=== PATIENT | female | born 1980 | race Caucasian/White ===

== ENCOUNTER → 2016-10-31 | Outpatient (CLI) | payer BC, OTHER ==
[~2016-10-31] MED LIST: ACET-1256 PO; ALBU1AER9 INH; CETI10TA84 PO; CHOL100010 PO; CMP/10 PO; KETO10TA PO; LEVO100T7 PO; LRS20 PO; NRT75 PO; OLOP0.1S2 OPB
--- NOTE | 2016-11-01 07:55 | MAMMOGRAPHY REPORT ---
BILATERAL DIGITAL SCREENING MAMMOGRAM TOMOSYNTHESIS WITH CAD: 10/31/2016 CLINICAL HISTORY: Routine screening. Patient has no complaints. TECHNIQUE: Breast tomosynthesis in addition to standard 2D mammography was performed. Current study was also evaluated with a Computer Aided Detection (CAD) system. COMPARISON: No prior exams were available for comparison. BREAST COMPOSITION: The tissue of both breasts is extremely dense, which lowers the sensitivity of m ammography. FINDINGS: No suspicious mass, architectural distortion or cluster of microcalcifications is seen. IMPRESSION: ACR BI-RADS CATEGORY 1: NEGATIVE There is no mammographic evidence of malignancy. A 1 year screening mammogram is recommended. Given the reported strong family history of breast cancer, and extremely dense breasts, consider additional screening with breast MRI. The patient will receive written notification of the results. Approximately 10% of breast cancers are not detected with mammography. A negative mammographic report should not delay biopsy if a clinically suggestive mass is present. Shayla Lind M.D. ay/:10/31/2016 18:31:50 Packing Machine Tender: Catrachita MIGUEL)(Chary), [facility] letter sent: Normal 1/2 BI-RADS Code: ACR BI-RADS Category 1: Negative
== END | disposition home or self-care (01) ==
LOC: C.MAMM 12:21
PROVIDERS: ATTEND Obstetrics & Gynecology
DX: Z12.31 Encounter for screening mammogram for malignant neoplasm of breast (principal)

== ENCOUNTER → 2016-11-27 | Outpatient (CLI) | payer BC ==
--- NOTE | 2016-11-27 17:30 | DIAGNOSTIC IMAGING REPORT ---
ULTRASOUND L VENOUS DOPP LOWER EXT UNILAT CLINICAL HISTORY: LEFT LEG PAIN AND SWELLING COMPARISON STUDY: No previous studies for comparison. FINDINGS: Real-time and color flow Doppler imaging were performed. Flow was seen within the femoral, popliteal and calf veins with no intraluminal thrombus demonstrated. The saphenous vein is patent. IMPRESSION: No evidence of left lower extremity DVT. Electronically signed by: Niranjan Vogt M.D. 11/27/2016 5:29 PM Dictated Date/Time: 11/27/2016 5:29 PM
== END | disposition home or self-care (01) ==
LOC: C.ULTR 16:54
PROVIDERS: ATTEND Family Medicine
DX: M79.652 Pain in left thigh (principal)

== ENCOUNTER → 2016-12-05 | Outpatient (CLI) | payer BC ==
[2016-12-05 11:02] LABS: BASO % 0.8 %; BASO ABS # 0.05 K/uL (0-0.2); COMPLETE YES; EOS % 4.8 %; HEMATOCRIT 39.5 % (37-47); IG% 0.2 %; LYMPH % 34.8 %; LYMPH ABS # 2.24 K/uL (1.2-3.4); MEAN CELL VOLUME 89.4 fL (80-100); MEAN CORPUSCULAR HEMOGLOBIN 31.2 pg (25-34); MEAN CORPUSCULAR HGB CONC 34.9 g/dl (32-36); MEAN PLATELET VOLUME 9.6 fL (7.4-10.4); MONO % 7.2 %; NEUT % 52.2 %; PLATELET COUNT 277 K/uL (130-400); RED BLOOD COUNT 4.42 M/uL (4.2-5.4); WHITE BLOOD COUNT 6.43 K/uL (4.8-10.8)
[2016-12-05 14:02] LABS: ALT/SGPT 23 U/L (12-78); AST/SGOT 11 U/L (15-37); BLOOD UREA NITROGEN 15 mg/dl (7-18); BUN/CREATININE RATIO 20.8 (10-20); CARBON DIOXIDE 26 mmol/L (21-32); CHLORIDE 107 mmol/L (98-107); CREATININE 0.74 mg/dl (0.60-1.20); GLUCOSE 82 mg/dl (70-99); MAGNESIUM 2.2 mg/dl (1.8-2.4); POTASSIUM 4.3 mmol/L (3.5-5.1); SODIUM 140 mmol/L (136-145)
[2016-12-05 14:05] LABS: ALB/GLOB RATIO 1.2 (0.9-2); ALKALINE PHOSPHATASE 38 U/L (45-117)
== END | disposition home or self-care (01) ==
LOC: C.LABBC 09:13
PROVIDERS: ATTEND Psychiatry & Neurology Neurology
DX: G43.909 Migraine, unspecified, not intractable, without status migrainosus (principal)

== ENCOUNTER → 2017-06-28 | Outpatient (CLI) | payer BC | END | disposition home or self-care (01) | LOC: C.LAB 07:58 | PROVIDERS: ATTEND Nutritionist | DX: R53.83 Other fatigue (principal) ==

== ENCOUNTER 2023-09-23 04:41 | Observation (INO) ==
--- OUTSIDE RECORDS SUMMARY | 2023-09-23 04:46 | External Medical Summary | Continuity of Care Document ---
Author Name Unknown Organization [address] Address [address] [place] [phone] Care Team Providers Care Help Desk Supervisor Name Role Phone Gallo Richard Primary Care Physician [phone] [id number] Date(s): 08/27/23 - 08/27/[address] [address] [phone] Encounter Diagnosis Body mass index [BMI] 26.0-26.9, adult(Discharge Diagnosis) - 08/27/23 Burris esophagus(Discharge Diagnosis) - 08/27/23 Constipation(Discharge Diagnosis) - 08/27/23 GERD with esophagitis(Discharge Diagnosis) - 08/27/23 Discharge Disposition: Home or Self Care Attending Physician: MD Fontanez Brian D Referring Physician: DO Richard Franklin J Allergies, Adverse Reactions, Alerts No Known Allergies Assessment and Plan Extracted from: Title:GI OV Author:MD Fontanez Brian D Date: 08/27/23 Impression and Plan constipaiton---continue Linzess but add in Miralax up to every day on regular basis to help with constipaion. GERD stable on PPI, Discusse potential superintendent terminal risk of dementia, osteoporosis, renal issues. Howevver, H2 blockers not effective. Check Mg and B12 which I told paitent. Barretts---in 2019 but neg last 2 scopes. Pt would like to keep following EGD for peace of mind and mother has Barretts--nest due 06/2026 hx of colon polyp--next due 06/2028 Check Mg and B12 Pt told to call if not heard results of testing within 2 weeks. OV 6 months. Immunizations Given and Recorded Vaccine Date Status Refusal Reason SARS-CoV-2 (COVID-19) mRNA BNT-162b2 vax 1 02/02/22 Recorded influenza virus vaccine, inactivated 12/30/20 Russell rded influenza virus vaccine, inactivated 11/19/19 Give n influenza virus vaccine, inactivated 03/31/19 Give n influenza virus vaccine, inactivated 12/27/17 Give n influenza virus vaccine, inactivated 01/18/17 Give n influenza virus vaccine, inactivated 01/11/16 Give n influenza virus vaccine, inactivated 12/23/14 Give n influenza virus vaccine, inactivated 11/15/12 Give n influenza virus vaccine, inactivated 11/30/11 Give n SARS-CoV-2 (COVID-19) ChAdOx1 vaccine 2 05/16/20 R ecorded tetanus/diphtheria/pertuss, acel (Tdap) 11/18/13 R ecorded tetanus/diphtheria/pertuss, acel (Tdap) 12/22/08 R ecorded diphtheria/pertussis, whole cell/tetanus 3 11/18/13 Recorded human papillomavirus vaccine 08/22/06 Recorded human papillomavirus vaccine 05/03/06 Recorded human papillomavirus vaccine 03/07/06 Recorded 1Result Comment: 2022-03-30: Historical information-source unspecified 2Result Comment: [employer] 3Result Comment: 2019-12-04: Historical information-source unspecified Medications Albuterol (Eqv-ProAir HFA) 90 mcg/inh inhalation aerosol Start: 12/27/22 5:05:00 PM EDT, 2 puff, inhaled, qid, Disp# 8.5 each, Refills: 3, PRN: NEEDED FOR WHEEZING, Pharmacy: [id number] [id number] Start Date: 12/27/22 Status: Ordered baclofen Start: 11/01/20 9:27:00 AM EDT, 10 mg =, PO, tid Start Date: 11/01/20 Status: Ordered Botox injections Start: 12/14/21 2:19:00 PM EDT, Botox injections, 150 = mg, q90 days Start Date: 12/14/21 Status: Ordered DULoxetine 30 mg oral delayed release capsule Start: 10/23/22 8:19:00 AM EDT, 1 cap, PO, Daily Start Date: 10/23/22 Status: Ordered DULoxetine 60 mg oral delayed release capsule Start: 10/23/22 8:18:00 AM EDT, 1 cap, PO, Daily Start Date: 10/23/22 Status: Ordered fluticasone 50 mcg/inh nasal spray Start: 09/16/14 8:30:31 AM EDT, See Instructions, Disp# 1 each, Refills: 2, INSTILL one SPRAYS IN EACH NOSTRIL twice DAILY in each nostril, Pharmacy: [id number] Start Date: 09/16/14 Status: Ordered levothyroxine 100 mcg (0.1 mg) oral tablet Start: 01/05/23 1:28:00 PM EDT, See Instructions, Disp# 90 tab, Refills: 2, TAKE 1 TABLET BY MOUTH EVERY DAY TAKE 1/2 TABLET ON MONDAYS, Pharmacy: [facility] [id number] Start Date: 01/05/23 Status: Ordered Metamucil Start: 08/27/23 8:46:00 AM EDT, one teaspoon po once to twice per day Start Date: 08/27/23 Status: Ordered MiraLax oral powder for reconstitution Start: 08/27/23 8:47:00 AM EDT, 17 g =, PO, Daily, PRN: constipation Start Date: 08/27/23 Status: Ordered naproxen sodium 220 mg oral capsule Start: 03/30/22 12:49:00 PM EST, 2 cap, PO, q8h, Disp# 60 cap, Pharmacy: [id number] Start Date: 03/30/22 Stop Date: 04/09/22 Status: Ordered nortriptyline 10 mg oral capsule Start: 12/14/21 2:18:00 PM EDT, 3 caps qhs Start Date: 12/14/21 Status: Ordered Nurtec ODT 75 mg oral tablet, disintegrating Start: 12/14/21 2:18:00 PM EDT Start Date: 12/14/21 Status: Ordered omeprazole 40 mg oral delayed release capsule Start: 08/27/23 8:46:00 AM EDT, 1 cap, PO, Daily Start Date: 08/27/23 Status: Ordered propranolol Start: 10/23/22 7:56:00 AM EDT Start Date: 10/23/22 Status: Ordered Suprep Bowel Prep Kit oral liquid Start: 06/05/23 1:25:00 PM EDT, See Instructions, Disp# 354 mL, Refills: 0, Take as directed., Pharmacy: [id number] Start Date: 06/05/23 Status: Ordered Mental Status 08/27/23 Barriers to Learning one year None evide nt Mandatory Health Literacy Documentation Yes Health Literacy Communication Barriers N ever Primary Language [place] Problem List Condition Confirmation Course Effective Dates Status Health St atus Informant Burris esophagus Confirmed Active Carotidynia Confirmed Active Constipation Confirmed Active Fibromyalgia Confirmed Active GERD with esophagitis Confirmed Active IBS (irritable bowel syndrome) Confirmed Active 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 wheezing Confirmed Active Sinusitis Confirmed Active Trigeminal neuralgia Confirmed Active Diagnosis Diagnosis Type Effective Dates Health Status Clinical Service Informant Body mass index [BMI] 26.0-26.9, adult Discharge Diagnosis 08/27/23 Non-Specified Burris esophagus Discharge Diagnosis 08/27/23 Constipation Discharge Diagnosis 08/27/23 GERD with esophagitis Discharge Diagnosis 08/27/23 Procedures Procedure Date Related Diagnosis Body Site Status Colonoscopy 1, 2 06/20/23 Complete d EGD - esophagogastroduodenoscopy 3, 4 06/20/23 Completed Mammography - screening 5 02/03/21 Completed Polysomnography 6 11/16/20 Complet ed EGD - esophagogastroduodenoscopy 7, 8 06/08/20 Completed Mammogram 9 01/28/19 Completed Colonoscopy 10, 11 05/03/18 Comple mercy Esophagogastroduodenoscopy 12, 13 05/03/18 Completed Date of last PAP smear 14 02/20/18 Completed Venous doppler ultrasonograp hy left leg 15 11/27/16 Completed Mammogram 16 10/31/16 Completed MRI of cervical spine 17 12/30/14 Completed oral surgery Completed 1- Repeat colonoscopy in 5 years for surveillance. 2- Redundant colon. ranged from good to fair throughout the extent of exam. Extensive suctioning and washing was successful. - The examination was otherwise normal on direct and retroflexion views. - No specimens collected. 3- Z-line irregular, 38 cm from the incisors. Biopsied. - 2 cm hiatal hernia. - Erythematous mucosa in the antrum. Biopsied. - Normal examined duodenum. 4A) Gastric antrum, biopsy: Mild congestion and foveolar hyperplasia with minimal chronic inflammation. COMMENT: No Helicobacter pylori organisms are identified on an immunohistochemical stain for H. pylori. B) Gastroesophageal junction, biopsy: Squamous and gastric columnar mucosa with minimal chronic inflammation. COMMENT: No intestinal metaplasia or dysplasia identified. 5There is no mammographic evidence of malignancy. A 1 year screening mammogram is recommended. 6Diagnosis of karon not supported by this test which revealed a normal AHI. 7Esophageal mucosal changes consistent with short-segment Burris's esophagus, biopsied No esophagitis or stricture seen. Normal stomach. Normal duodenum to the fourth portion, biopsied. Pathology results: A) Random duodenum, biopsy: Duodenal mucosa, no significant pathological findings. B) Distal esophagus, biopsy: Squamocolumnar junctional mucosa with prominent chronic inflammation. No evidence of intestinal metaplasia or dysplasia. 8This was done by Lala Miranda and indication for procedure is dyspahgia, Barretts, bloating, 9there is no m ammographic evidence of malignancy 10COLO to cecum, fair prep but washes effective, redundant colon, polyp at 55 cm cold snared and clipped, 11path adenoma--repeat colo 5 years. 12EGD grade A erosive esopahgitis bx, mid esoph bx, 2nd duod nl bx, antral erythema bx 13path SB, antrum neg, GE focal intestinal metaplasis, mid esophagus normal. EGD 3 years 14Negative for intraepithelial lesion or malignancy. 15No evidence of left lower extermity DVT 16there is no mammgraphick evidence of malignancy 1 yr screening recommended 17[facility] Impression: 1.Signal characteristics of the vertebral bodies as well as intervertebral that appear to be unremarkable. Vital Signs Most recent to oldest [Reference Range]: 1 Height 164 cm (08/27/23 8:49 AM) Patient Weight 70.2 kg (08/27/23 8:49 AM) Body Mass Index 26.1 kg/m2 (08/27/23 8:49 AM) Blood Pressure 122/62mmHg (08/27/23 8:49 AM) Cuff Pulse Pressure 60 mmHg (08/27/23 8:49 AM) BP Location # 1 Left Arm (08/27/23 8:49 AM) Social History Social History Type Response Smoking Status Never smoked cigaret wade Sex Female Gastroenterology Outpatient Note * MD Huseyin, Robi D: PERFORM, SIGN, VERIFY Event Display: Gastroenterology Outpt Note Authored Date: [id number] Patient: PERRI DENIS Age: 43 years Sex: Female : 1980 Associated Diagnoses: None Author: MD Huseyin, Robi Suresh Chief Complaint 08/27/2023 08:47 EDT New pt here with c/o IBS-C. Is taking Linzess 290 daily. Will use metamucil po 1-2 per day. C/O upper abd pain with constipation. Just had EGD and colo History of Present Illness 08/27/2023 New patient to office but has had procedures by our group. DATA reviewed: EGD by our group 05/201819 grade A esopahgitis, path intestinal metaplasia, antrum nl path neg, mid esophnl path neg, duod nl path neg EGD [facility] 06/2020 indication barrretts, bloating, dysphagia, result short segment Barretts path neg for intestinal metaplasis, random duod bx neg COLONOSCOPY by our group polyp at 55 cm removed path tubular adenoma. labs by PCP FT4, TSH normal. EGD 06/20/2023 by me redundant, repeat exam in 5 years COLONOSCOPY 06/20/2023 irregular Z line bx path neg for intestinal metaplasia, 2 cm HH, erythema of antrum path inflammation neg for H.pylori. ETOH rare, tobacco neg. Pt states if misses a dose of Omeprzole will have GERD otherwise if taking regullary the gerd is controlled. Famotidine does not work. LInzess helps constipation but will need prunes, pickles, marinated artichokes, and/or metamucil will help. MIralax was causing gas and bloating in the past. If goes 2-3 days she will use miralax ---needs todo that every other week or so and no blaoting and gas noted. Pt feels better having bowel movements once a day. She notices bloating with lactose, gluten and possibly raw vegetables. Pt states she has had pelvic ultrasounds in the past while having the bloating symptoms and neg forpelvic pathology. She is on thyroid medication. Review of Systems Constitutional: Negative. Eye: Negative. Ear/Nose/Mouth/Throat: Negative. Respiratory: Negative. Cardiovascular: Negative. Gastrointestinal: Negative except as documented in history of present illness. Genitourinary: Negative. Hematology/Lymphatics: Negative. Endocrine: Negative. Immunologic: Negative. Musculoskeletal: Joint pain, Muscle pain, fibromyalgia. Integumentary: Negative. Neurologic: migraine headaches. Psychiatric: Negative. Health Status Allergies: Allergic Reactions (Selected) NKA. Current medications: (Selected) Prescriptions Prescribed Albuterol (Eqv-ProAir HFA) 90 mcg/inh inhalation aerosol: 2 puff, inhaled, qid, PRN: NEEDED FOR WHEEZING, 8.5 each, 3 Refill(s) Suprep Bowel Prep Kit oral liquid: See Instructions, Take as directed., 354 mL, 0 Refill(s) famotidine 40 mg oral tablet: 1 tab, PO, bid, for 30 day, 60 tab, 1 Refill(s) fluticasone 50 mcg/inh nasal spray: See Instructions, INSTILL one SPRAYS IN EACH NOSTRIL twice DAILY in each nostril, 1 each, 2 Refill(s) levothyroxine 100 mcg (0.1 mg) oral tablet: See Instructions, TAKE 1 TABLET BY MOUTH EVERY DAY TAKE1/2 TABLET ON MONDAYS, 90 tab, 2 Refill(s) naproxen sodium 220 mg oral capsule: 2 cap, PO, q8h, for 10 day, 60 cap Documented Medications Documented Botox injections: 150 mg, q90 days DULoxetine 30 mg oral delayed release capsule: 1 cap, PO, Daily DULoxetine 60 mg oral delayed release capsule: 1 cap, PO, Daily Metamucil: one teaspoon po once to twice per day MiraLax oral powder for reconstitution: 17 g, PO, Daily, PRN: constipation Nurtec ODT 75 mg oral tablet, disintegrating: baclofen: 10 mg, PO, tid nortriptyline 10 mg oral capsule: 3 caps qhs omeprazole 40 mg oral delayed release capsule: 1 cap, PO, Daily propranolol: . Problem list: Medical ACQUIRED HYPOTHYROIDISM / ICD-9-CM 244 / Rule out Burris esophagus / SNOMED CT 647730379 / Confirmed Carotidynia / SNOMED CT 377419798 / Confirmed Facial neuralgia / SNOMED CT 833353654 / Confirmed Fibromyalgia / SNOMED CT 019117046 / Confirmed IBS (irritable bowel syndrome) / ICD-9-CM 564.1 / Confirmed Migraine with aura / ICD-9-CM 346.0 / Rule out MYALGIA. / ICD-9-CM 729.1 / Rule out RAD (reactive airway disease) with wheezing / SNOMED CT 2153321975 / Confirmed Sinusitis / SNOMED CT 22908165 / Confirmed Trigeminal neuralgia / SNOMED CT 69516810 / Confirmed All Problems ACQUIRED HYPOTHYROIDISM / ICD-9-CM 244 / Rule out Burris esophagus / SNOMED CT 381631124 / Confirmed Carotidynia / SNOMED CT 450353877 / Confirmed Facial neuralgia / SNOMED CT 830671188 / Confirmed Fibromyalgia / SNOMED CT 107096848 / Confirmed IBS (irritable bowel syndrome) / ICD-9-CM 564.1 / Confirmed Migraine with aura / ICD-9-CM 346.0 / Rule out MYALGIA. / ICD-9-CM 729.1 / Rule out RAD (reactive airway disease) with wheezing / SNOMED CT 0533609214 / Confirmed Sinusitis / SNOMED CT 93856775 / Confirmed Trigeminal neuralgia / SNOMED CT 18906076 / Confirmed. Histories Past Medical History: Resolved Cyst, ovarian (620.2): Resolved. Acute maxillary sinusitis (686632347): Resolved. Viral URI with cough (987128804): Resolved.. Family History: Breast cancer Mother High Blood Pressure Mother Father . Procedure history: Colonoscopy ([id number]) on 06/20/2023 at 43 Years. Comments: 06/20/2023 15:02 Cele Yi - Repeat colonoscopy in 5 years for surveillance. 06/20/2023 15:01 Cele Yi - Redundant colon. ranged from good to fair throughout the extent of exam. Extensive suctioning and washing was successful. - The examination was otherwise normal on direct and retroflexion views. - No specimens collected. EGD - esophagogastroduodenoscopy ([id number]) on 06/20/2023 at 43 Years. Comments: 06/26/2023 07:13 Cele Yi A) Gastric antrum, biopsy: Mild congestion and foveolar hyperplasia with minimal chronic inflammation. COMMENT: No Helicobacter pylori organisms are identified on an immunohistochemical stain for H. pylori. B) Gastroesophageal junction, biopsy: Squamous and gastric columnar mucosa with minimal chronic inflammation. COMMENT: No intestinal metaplasia or dysplasia identified. 06/20/2023 15:01 Cele Yi - Z-line irregular, 38 cm from the incisors. Biopsied. - 2 cm hiatal hernia. - Erythematous mucosa in the antrum. Biopsied. - Normal examined duodenum. Mammography - screening ([id number]) on 02/03/2021 at 40 Years. Comments: 02/04/2021 10:16 HASMUKH Christianson LPN, Lindsey There is no mammographic evidence of malignancy. A 1 year screening mammogram is recommended. Polysomnography ([id number]) on 11/16/2020 at 40 Years. Comments: 11/23/2020 16:32 NAVEED Soto LPN, Vanessa T Diagnosis of karon not supported by this test which revealed a normal AHI. EGD - esophagogastroduodenoscopy ([id number]) on 06/08/2020 at 40 Years. Comments: 03/14/2023 07:23 HASMUKH Fontanez MD, Robi Suresh [facility] and indication for procedure is dyspahgia, Barretts, bloating, 03/13/2023 17:08 HASMUKH Chaudhry LPN, Erin Esophageal mucosal changes consistent with short-segment Burris's esophagus, biopsied No esophagitis or stricture seen. Normal stomach. Normal duodenum to the fourth portion, biopsied. Pathology results: A) Random duodenum, biopsy: Duodenal mucosa, no significant pathological findings. B) Distal esophagus, biopsy: Squamocolumnar junctional mucosa with prominent chronic inflammation. No evidence of intestinal metaplasia or dysplasia. Mammogram ([id number]) on 01/28/2019 at 38 Years. Comments: 02/04/2019 08:23 HASMUKH Jarvis LPN, Lori there is no m ammographic evidence of malignancy Esophagogastroduodenoscopy ([id number]) on 05/03/2018 at 37 Years. Comments: 05/14/2018 12:34 NAVEED Fontanez MD, Brian D path SB, antrum neg, GE focal intestinal metaplasis, mid esophagus normal. EGD 3 years 05/03/2018 08:47 HASMUKH Fontanez MD, Brian D EGD grade A erosive esopahgitis bx, mid esoph bx, 2nd duod nl bx, antral erythema bx Colonoscopy ([id number]) on 05/03/2018 at 37 Years. Comments: 05/14/2018 12:35 NAVEED Fontanez MD, Brian D path adenoma--repeat colo 5 years. 05/03/2018 08:48 HASMUKH Fontanez MD, Brian D COLO to cecum, fair prep but washes effective, redundant colon, polyp at 55 cm cold snared and clipped, Date of last PAP smear ([id number]) on 02/20/2018 at 37 Years. Comments: 02/27/2018 14:55 HASMUKH Soto LPN, Vanessa T Negative for intraepithelial lesion or malignancy. Venous doppler ultrasonography left leg ([id number]) on 11/27/2016 at 36 Years. Comments: 11/27/2016 18:54 EDT - Rosana Escobar No evidence of left lower extermity DVT Mammogram ([id number]) on 10/31/2016 at 36 Years. Comments: 11/01/2016 11:51 EDT - SONIA Singletary Stephanie there is no mammgraphick evidence of malignancy 1 yr screening recommended MRI of cervical spine ([id number]) on 12/30/2014 at 34 Years. Comments: 12/31/2014 08:51 GONZALEZT Pepper Sebastian LPN, [facility] Impression: 1.Signal characteristics of the vertebral bodies as well as intervertebral that appear to be unremarkable. oral surgery.. Social History Social & Psychosocial Habits Alcohol 08/14/2012 Risk Assessment: Denies Alcohol Use Substance Abuse 12/06/2011 Risk Assessment: Denies Substance Abuse Tobacco 12/06/2011 Risk Assessment: Denies Tobacco Use . Physical Examination Vital Signs 08/27/2023 08:49 EDT Systolic Blood Pressure 122 mmHg Diastolic Blood Pressure 62 mmHg BP Location # 1 Left Arm Cuff Pulse Pressure 60 mmHg Pulse 88 Measurements from flowsheet : Measurements 08/27/2023 08:51 EDT Osteoporosis Screening Tool 5.44 08/27/2023 08:49 EDT Height 164 cm Height Method Patient stated Patient Weight 70.2 kg Weight 70.200 kg Weight Method Standing Scale Body Mass Index 26.1 kg/m2 Body Surface Area 1.79 m2 [place] Body Weight 56 kg Height/Weight Refused Height/Weight Taken Gastrointestinal: Soft, Non-tender, Non-distended, Normal bowel sounds. Impression and Plan constipaiton---continue Linzess but add in Miralax up to every day on regular basis to help with constipaion. GERD stable on PPI, Discusse potential superintendent terminal risk of dementia, osteoporosis, renal issues. Howevver, H2 blockers not effective. Check Mg and B12 which I told paitent. Barretts---in 2019 but neg last 2 scopes. Pt would like to keep following EGD for peace of mind andmother has Barretts--nest due 06/2026 hx of colon polyp--next due 06/2028 Check Mg and B12 Pt told to call if not heard results of testing within 2 weeks. OV 6 months. Electronic Signature on File Electronically Reviewed/Signed by: Robi Fontanez MD Author Signature Dt/Tm:08/27/2023 09:26 AM Division of Gastroenterology BDD Patient Care team information Care Team Personnel Name: MD Romulo, Nikolay Suresh Position: Physician - Family Med Member Role: Lifetime Relationship Address: Address: [address] [place] [address] Name: DO Richard Franklin J Position: Physician - Family Med Member Role: Primary Care Provider Address: Address: [address] [place] [address] Care Team Related Persons Name: ROBI DENIS Address: home [address] [place] [phone] Name: ROBI DENIS Address: [facility] Address: home [address] [place] [address] [phone] Name: WILLIE DENIS Address: [facility] Address: home [address] [place] [address] [phone]
--- NOTE | 2023-09-23 05:05 | Emergency Department Note ---
Impression & Plan Abdominal pain, Acute cholecystitis ED Provider Note ED Provider Note NAME: PERRI DENIS AGE:43 SEX: Female : 1980 ARRIVES VIA: Private vehicle INFORMANT: Patient ED PROVIDER(s): Jenae Garcia DO CHIEF COMPLAINT: Abdominal pain HPI: This is a 43-year-old female who presents emergency department due to concern for abdominal pain she states she woke up with abdominal pain around midnight. She states that it was initially waxing and waning but now is more constant and radiates into her back. She has been nauseous but has not vomited. No fevers or chills. Patient states this is the fourth episode over the course of the last month with this pain. No particular pattern or trigger. She does have history of IBS. She has previously undergone EGD/[facility], most recent of which was in the spring, which were reported to her as reassuring. No recent change in diet or medications. She did recently travel to [place], however no known sick contacts. Patient states she did have gluten-free pizza tonight for dinner but felt well when she went to bed. Patient does have an IUD and has had a prior tubal ligation. She does still have some spotting for her menstrual cycle, this started yesterday. PAST MEDICAL HISTORY:See Below PAST SURGICAL HISTORY:See Below FAMILY HISTORY:See Below SOCIAL HISTORY:See Below HOME MEDICATIONS:See Below ALLERGIES:See Below VITALS:See Below PHYSICAL EXAMINATION: GENERAL: alert, uncomfortable appearing, well nourished, mild distress, laying right lateral recumbent on the bed EYE EXAM: normal conjunctiva, PERRL and EOM's grossly intact OROPHARYNX: no exudate, no erythema, lips, buccal mucosa, and tongue normal and mucous membranes are moist NECK: supple, no nuchal rigidity, no adenopathy, non-tender LUNGS: Clear to auscultation. Normal chest wall mechanics, no w/r/r HEART: no murmurs, S1 normal and S2 normal ABDOMEN: abdomen soft, epigastric tenderness, normo-active bowel sounds, no masses, no rebound or guarding. BACK: Back is symmetrical on inspection and there is no deformity, no midline tenderness, mild discomfort with palpation over the mid back, left greater than right SKIN: no rashes, petechiae, orbruising UPPER EXTREMITIES: upper extremities are grossly normal. FROM, nml pulses b/l. LOWER EXTREMITIES: No pitting edema. FROM, nml pulses b/l. NEURO EXAM: Normal sensorium, cranial nerves II-XII grossly intact, normal speech, no facial droop,nogross weakness of arms, no gross weakness of legs. Gross sensation intact. No ataxia. Vital Signs: reviewed and remarkable Differential Diagnosis: Gastritis, PUD, cholecystitis, pancreatitis, colitis, bowel obstruction, ACS, AAA, viral syndrome, foodborne illness, as well as others were considered MEDICAL DECISION MAKING: This is a 43-year-old female who presents emerged part due to concern for abdominal pain. Patient uncomfortable appearing on exam however patient afebrile vital signs stable. Labs drawn and sent, IV established, patient monitored on telemetry. She was started on IV fluids. Initial concern for possible gastric or biliary pathology. Patient given IV Tylenol, IV Pepcid, IV Zofran, and IV fentanyl with improvement. There was some delay in obtaining labs which need to be redrawn however labs were reassuring. After discussion of possible differential diagnosis, CT the abdomen pelvis was ordered, EKG performed/interpreted by me at bedside, and troponin added to labs. Patient's EKG and troponin reassuring. Patient signed out awaiting CT of the abdomen pelvis. She did require additional pain medication was given IV morphine. She remained hemodynamically stable. ER Treatment Provided: See below 0700: Case signed out to Dr. Mcgrath pending CT a/p results and repeat evaluation. Diagnostics Interpreted By Me: -ECG: nsr at 66, nml axis, nml intervals, inverted T waves in V2/3, no other acute ischemic changes -Cardiac Monitoring: An order was placed for continuous cardiac monitoring. The monitor shows a rate of 70 with normal sinus rhythm. -Laboratory studies: As stated above and show below. Triage Nursing Note Reviewed Prior/Outside Records Reviewed Past Med/Surg History Problem List Acute cholecystitis Abdominal pain (Acute) Dense breast tissue Family history of malignant neoplasm of breast At increased risk for malignant neoplasm of breast ELEVATED T/C SCORE Migraine with aura Abnormal uterine bleeding (AUB) Chronic migraine Pre-menstrual syndrome Macromastia Trigeminal neuralgia (Chronic) Thyroid disorder (Chronic) Asthma Fibromyalgia GERD (gastroesophageal reflux disease) Irritable bowel syndrome Encounter for annual routine gynecological examination Family history of malignant neoplasm of endometrium Hypothyroidism (Chronic) Chronic fatigue (Acute) Cervical radiculopathy (Acute) Presence of 52 mg levonorgestrel-releasing intrauterine device (IUD) 04/2019 [facility] Medical History Dysmenorrhea Neck pain Tingling Menorrhagia Pelvic pain History of trigeminal neuralgia History of varicella Hx of mitral valve prolapse History of cellulitis Bartholin gland cyst Anemia affecting Surgical History S/P tubal ligation 12/15/13 H/O oral surgery Family History Mother Barretts esophagus Hyperparathyroidism Breast cancer, Onset Age: 43 Uterine cancer Hypothyroid Father Hypertension Grandmother (Maternal) Hypertension Hypothyroid Aunt Hypothyroid Maternal Aunt Breast cancer, Onset Age: 70 Grandfather (Maternal) Salivary gland cancer Other History of angina History of heart artery stent Social History Smoking Status: Never smoker Do You Dip or Chew Tobacco: No; Hx Alcohol Use: Yes Alcohol type: wine Alcohol Intake Frequency: Monthly or Less Hx Substance Use: No Preferred Language: Romanian Communication Ability: Effective Visual Impairment: No Limitations Hearing Ability: Normal Infrastructure Security Architect Required: No Beliefs That Will Affect Care: None marital status: Current Living Situation: Spouse Current Living Situation Comment: With current occupational status: 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 Other Information That Helps Us Care for You: No Feels Safe at Home: Yes Safety Concerns: Feels Safe At This Time Dental Care, Regularly: No Seatbelt Use: always Sunscreen Use: Yes Allergies Allergies Allergy/AdvReac Type Severity Reaction Status Date / Time carbamazepine [From Tegretol] AdvReac liver Verified 08/20/23 09:07 problems [id number] Antimigraine AdvReac SIDE Verified 08/20/23 09:07 Agents EFFECTS Home Meds Home Medications Medication Instructions Recorded Confirmed acetaminophen 500 mg tablet 1,000 mg PO Q6H PRN Pain 02/27/18 09/23/23 (Tylenol Extra Strength) cetirizine 10 mg tablet (Zyrtec) 10 mg PO HS 02/27/18 09/23/23 omeprazole 40 mg capsule,delayed 40 mg PO QAM 10/31/18 09/23/23 release levothyroxine 100 mcg tablet 100 mcg PO QAM 06/04/19 09/23/23 uoipfqf-nxycsoylsuebh-kxyeadod 250 1 tab PO Q6H PRN Migraine Headache 12/06/20 09/23/23 mg-250 mg-65 mg tablet (Excedrin Extra Strength) fluticasone propionate 50 1 spray intranasal HS PRN Other 12/06/20 09/23/23 mcg/actuation nasal spray,suspension olopatadine 0.1 % eye drops 1 drp OPB UD PRN Other 12/06/20 09/23/23 (Patanol) onabotulinumtoxinA [Botox] 1 dose intradermal .[id number] 01/20/21 09/23/23 albuterol sulfate 90 mcg/actuation 2 puff inhalation QID PRN Other 09/23/23 09/23/23 aerosol inhaler baclofen 20 mg tablet 20 mg PO TID 09/23/23 09/23/23 duloxetine 30 mg capsule,delayed 30 mg PO QAM 09/23/23 09/23/23 release duloxetine 60 mg capsule,delayed 60 mg PO QAM 09/23/23 09/23/23 release fremanezumab-vfrm 225 mg/1.5 mL 225 mg subcut MONTHLY 09/23/23 09/23/23 subcutaneous auto-injector (Ajovy) linaclotide 290 mcg capsule 290 mcg PO QAM 09/23/23 09/23/23 (Linzess) magnesium glycinate 400 mg PO HS 09/23/23 09/23/23 nortriptyline 10 mg capsule 30 mg PO HS 09/23/23 09/23/23 riboflavin (vitamin B2) 400 mg 400 mg PO HS 09/23/23 09/23/23 tablet Previous Rx's Medication Instructions Recorded methocarbamol 500 mg tablet 500 mg PO BID PRN neck pain 30 07/25/22 days #30 tabs rimegepant 75 mg disintegrating 75 mg PO ONCE PRN migraine 03/26/23 tablet (Nurtec ODT) headache #8 tabs propranolol 20 mg tablet 20 mg PO BID 90 days #180 tabs 08/21/23 Results & Data (ED) Vital Signs Vital Signs - 24 hr 09/23/23 07:06 09/23/23 07:06 09/23/23 07:12 Pulse Rate 72 Pulse Rate from SpO2 Sensor 72 Respiratory Rate 12 Blood Pressure 146/98 H 146/98 H Blood Pressure Mean 105 105 Pulse Oximetry 100 09/23/23 08:00 09/23/23 08:00 09/23/23 08:00 Pulse Rate 66 Pulse Rate from SpO2 Sensor 66 Respiratory Rate 10 L Blood Pressure 136/82 136/82 Blood Pressure Mean 100 100 Pulse Oximetry 99 09/23/23 08:39 09/23/23 09:00 09/23/23 09:00 Pulse Rate 67 Pulse Rate from SpO2 Sensor 67 Respiratory Rate 6 L Blood Pressure 109/77 109/77 Blood Pressure Mean 94 94 Pulse Oximetry 98 09/23/23 09:00 09/23/23 09:30 09/23/23 10:09 Pulse Rate 65 85 76 Pulse Rate from SpO2 Sensor 65 85 Respiratory Rate 10 L 12 Blood Pressure Blood Pressure Mean Pulse Oximetry 99 100 09/23/23 10:09 09/23/23 10:36 09/23/23 11:00 Pulse Rate 74 71 79 Pulse Rate from SpO2 Sensor 74 71 82 Respiratory Rate 13 13 16 Blood Pressure Blood Pressure Mean Pulse Oximetry 99 99 96 09/23/23 11:00 09/23/23 11:00 09/23/23 11:00 Pulse Rate Pulse Rate from SpO2 Sensor Respiratory Rate Blood Pressure 116/77 116/77 116/77 Blood Pressure Mean 90 90 90 Pulse Oximetry 09/23/23 11:30 Pulse Rate 75 Pulse Rate from SpO2 Sensor 77 Respiratory Rate 16 Blood Pressure Blood Pressure Mean Pulse Oximetry 99 Laboratory Data 09/24/23 05:37 09/24/23 05:37 Lab Results 09/23/23 09/23/23 09/23/23 Range/Units 04:55 05:11 06:13 WBC 9.23 (4.8-10.8) K/ul RBC 4.79 (4.20-5.40) M/uL Hgb 14.6 (12.0-16.0) g/dl Hct 43.8 (37.0-47.0) % MCV 91.4 (80.0-100.0) fL MCH 30.5 (25.0-34.0) pg MCHC 33.3 (32.0-36.0) g/dL RDW Std Deviation 40.9 (36.4-46.3) fL RDW Coeff of Eugenia 12.2 (11.5-14.5) % Plt Count 334 (130-400) K/uL MPV 10.5 (9.4-12.4) fL Immature Gran % (Auto) 1.2 % Neut % (Auto) 67.9 % Lymph % (Auto) 20.8 % [place] % (Auto) 5.6 % Eos % (Auto) 3.8 % Baso % (Auto) 0.7 % Neut # (Auto) 6.27 (1.40-6.50) K/uL Lymph # (Auto) 1.92 (1.20-3.40) K/uL [place] # (Auto) 0.52 (0.11-0.59) K/uL Eos # (Auto) 0.35 (0.00-0.50) K/uL Baso # (Auto) 0.06 (0.00-0.20) K/uL Immature Gran # (Auto) 0.11 (0.01-0.20) K/uL Sodium Cancelled 137 Potassium Cancelled 4.2 Chloride Cancelled 105 Carbon Dioxide Cancelled 27 Anion Gap Cancelled 5 BUN Cancelled 12 Creatinine Cancelled 0.64 Est Cr Clr Drug Dosing Cancelled 109.8 Est GFR ( Amer) Cancelled 126.7 Est GFR (Non-Af Amer) Cancelled 109.3 BUN/Creatinine Ratio Cancelled 18.8 Glucose Cancelled 116 H Calcium Cancelled 9.2 Total Bilirubin Cancelled 0.3 AST Cancelled 10 L ALT Cancelled 8 Alkaline Phosphatase Cancelled 28 L Troponin I High Sens 3.4 (0-14) pg/ml Total Protein Cancelled 6.0 Albumin Cancelled 3.9 Globulin Cancelled 2.1 L Albumin/Globulin Ratio Cancelled 1.9 Lipase 18 (11-82) U/L HCG, Qual Cancelled Negative Urine Color Yellow Urine Appearance Clear (Clear) Urine pH 6.0 (4.5-7.5) Ur Specific [place] 1.017 (1.000-1.030) Urine Protein Negative (Negative) Urine Glucose (UA) Negative (Negative) Urine Ketones Negative (Negative) Urine Blood Trace H (Negative) Urine Nitrite Negative (Negative) Urine Bilirubin Negative (Negative) Urine Urobilinogen Negative (Negative) Ur Leukocyte Esterase Negative (Negative) Urine WBC (Auto) 0-5 (0-5) /hpf Urine RBC (Auto) 0-2 (0-2) /hpf U Hyaline Cast (Auto) 0-2 (0-2) /lpf U Epithel Cells (Auto) 0-2 (0-2) /hpf Urine Bacteria (Auto) None Seen (None Seen) Administered Medications Lactated Ringer's (Lr) 1,000 mls @ 125 mls/hr IV .Q8H OSIRIS Stop: 10/23/23 11:59 Last Admin: 09/24/23 05:11 Dose: 125 mls/hr Documented By: Infusion: 09/24/23 04:19 Dose: Infused Documented By: [email or web address] Admin: 09/23/23 20:19 Dose: 125 mls/hr Documented By: Infusion: 09/23/23 20:16 Dose: Infused Documented By: Admin: 09/23/23 12:16 Dose: 125 mls/hr Documented By: PARISH Piperacillin Sod/Tazobactam (Sod 4.5 gm/ Dextrose) 100 mls @ 25 mls/hr IV Q8H OSIRIS; Protocol Stop: 10/03/23 16:59 Last Infusion: 09/24/23 05:02 Dose: Infused Documented By: Admin: 09/24/23 01:02 Dose: 25 mls/hr Documented By: Infusion: 09/23/23 20:21 Dose: Infused Documented By: Admin: 09/23/23 16:29 Dose: 25 mls/hr Documented By: AA Ketorolac Tromethamine (Ketorolac Tromethamine 15 Mg/Ml Vial) 10 mg IV Q6H PRN PRN Reason: Pain Stop: 09/28/23 11:52 Last Admin: 09/23/23 20:12 Dose: 10 mg Documented By: PLF Discontinued Medications Fentanyl Citrate (Fentanyl Citrate Pf 100 Mcg/2 Ml Vial) 50 mcg IV NOW STA Stop: 09/23/23 05:01 Last Admin: 09/23/23 05:26 Dose: 50 mcg Documented By: DL Sodium Chloride (Nss) 1,000 mls @ 250 mls/hr IV .Q4H OSIRIS Stop: 10/23/23 04:59 Last Admin: 09/23/23 12:22 Dose: Not Given Documented By: Infusion: 09/23/23 12:16 Dose: Infused Documented By: Admin: 09/23/23 08:56 Dose: 250 mls/hr Documented By: Infusion: 09/23/23 08:03 Dose: Infused Documented By: Admin: 09/23/23 05:26 Dose: 250 mls/hr Documented By: RANDALL Famotidine (Pepcid 20mg Iv Push) 20 mg in 5 mls @ 2.5 mls/min IV NOW STA Stop: 09/23/23 05:01 Last Admin: 09/23/23 05:26 Dose: 2.5 mls/min Documented By: RANDALL Acetaminophen (Ofirmev) 1,000 mg in 100 mls @ 400 mls/hr IV NOW STA Stop: 09/23/23 05:14 Last Infusion: 09/23/23 05:43 Dose: Infused Documented By: Admin: 09/23/23 05:26 Dose: 400 mls/hr Documented By: RANDALL Piperacillin Sod/Tazobactam Sod (Zosyn) 4.5 gm in 100 mls @ 200 mls/hr IV NOW ONE Stop: 09/23/23 11:38 Last Infusion: 09/23/23 12:00 Dose: Infused Documented By: Admin: 09/23/23 11:22 Dose: 200 mls/hr Documented By: PARISH Ioversol (Optiray 320 100ml) 94 ml IV ONCE ONE Stop: 09/23/23 07:38 Last Admin: 09/23/23 07:37 Dose: 94 ml Documented By: CARMINE Ketorolac Tromethamine (Ketorolac Tromethamine 15 Mg/Ml Vial) 10 mg IV NOW ONE Stop: 09/23/23 08:45 Last Admin: 09/23/23 08:54 Dose: 10 mg Documented By: PARISH Morphine Sulfate (Morphine Sulfate 4 Mg/Ml 1 Ml Carp\Vial) 4 mg IV NOW STA Stop: 09/23/23 06:45 Last Admin: 09/23/23 07:07 Dose: 4 mg Documented By: PARISH Ondansetron HCl (Ondansetron Inj 2 Mg/Ml 2 Ml Vial) 4 mg IV NOW STA Stop: 09/23/23 05:01 Last Admin: 09/23/23 05:26 Dose: 4 mg Documented By: RANDALL Ondansetron HCl (Ondansetron Inj 2 Mg/Ml 2 Ml Vial) 4 mg IV NOW STA Stop: 09/23/23 08:45 Last Admin: 09/23/23 08:51 Dose: 4 mg Documented By: PARISH Discharge Plan Visit Data Chief Complaint: Abdominal Pain Stated Complaint: ABD/BACK PAIN, NAUSEA ED Provider: Ag Mcgrath Discharge Problem: Abdominal pain, Acute cholecystitis Patient Disposition: Admitted As Inpatient Discharge Instructions Interventions: ED Discharge Assessment Last Done: 09/23/23 12:49
[2023-09-23 05:09] LABS: Appearance Urine Clear (Clear); Bacteria Urine Automated None Seen (None Seen); Bilirubin Urine Negative (Negative); Blood Urine Trace (Negative); Cast Urine Automated 0-2 /lpf (0-2); Color Urine Yellow; Epithelial Cell Urine Auto 0-2 /hpf (0-2); Glucose Urine UA Negative (Negative); Ketones Urine Negative (Negative); Leukocyte Esterase Urine Negative (Negative); Nitrite Urine Negative (Negative); Protein Urine Negative (Negative); RBC Urine Automated 0-2 /hpf (0-2); Specific Gravity Urine 1.017 (1.000-1.030); Urobilinogen Urine Negative (Negative); WBC Urine Automated 0-5 /hpf (0-5)
[2023-09-23] MEDS: ONDANSETRON INJ 2 MG/ML 2 ML VIAL IV STA ×2 (05:26→08:51)
[2023-09-23] MEDS: fentaNYL citrate PF 100 MCG/2 ML VIAL IV STA (05:26)
[2023-09-23] MEDS: ACETAMINOPHEN 1,000 MG/100 ML VIAL IV STA (05:26)
[2023-09-23] MEDS: FAMOTIDINE 20MG IV PUSH 20 MG/5 ML SYR IV STA (05:26)
[2023-09-23] MEDS: SODIUM CHLORIDE 0.9% 1,000 ML IV SCH (05:26)
[2023-09-23 05:35] LABS: Basophils # (auto) 0.06 K/uL (0.00-0.20); Basophils % (auto) 0.7 %; Eosinophils # (auto) 0.35 K/uL (0.00-0.50); Eosinophils % (auto) 3.8 %; Hematocrit (blood only) 43.8 % (37.0-47.0); Hemoglobin 14.6 g/dl (12.0-16.0); Immature Granulocytes # (auto) 0.11 K/uL (0.01-0.20); Immature Granulocytes % (auto) 1.2 %; Lymphocytes # (auto) 1.92 K/uL (1.20-3.40); Lymphocytes % (auto) 20.8 %; Mean Corpuscular Hemoglobin 30.5 pg (25.0-34.0); Mean Corpuscular Hgb Conc 33.3 g/dL (32.0-36.0); Mean Corpuscular Volume 91.4 fL (80.0-100.0); Mean Platelet Volume 10.5 fL (9.4-12.4); Monocytes # (auto) 0.52 K/uL (0.11-0.59); Monocytes % (auto) 5.6 %; Neutrophils # (auto) 6.27 K/uL (1.40-6.50); Neutrophils % (auto) 67.9 %; Platelet Count 334 K/uL (130-400); RDW Coefficient of Variation 12.2 % (11.5-14.5); RDW Standard Deviation 40.9 fL (36.4-46.3); Red Blood Count 4.79 M/uL (4.20-5.40); White Blood Count 9.23 K/ul (4.8-10.8)
[2023-09-23 06:44] LABS: Albumin Globulin Ratio 1.9 (0.9-2); Albumin Level 3.9 gm/dl (3.4-5.0); BUN Creatinine Ratio 18.8 (10-20); Bilirubin,Total 0.3 mg/dl (0.2-1.0); Calcium 9.2 mg/dl (8.6-10.3); Creatinine Clr Calc Pharmacy 109.8 ml/min; Est GFR (African American) 126.7 ml/min; Est GFR (Non-African American) 109.3 ml/min; Globulin 2.1 gm/dl (2.5-4.0); Potassium 4.2 mmol/L (3.5-5.1)
[2023-09-23 07:05] LABS: Pregnancy Test, Serum Negative (Negative)
[2023-09-23] MEDS: MoRPHine SULFATE 4 MG/ML 1 ML CARP\\VIAL IV STA (07:07)
--- NOTE | 2023-09-23 07:33 | Emergency Department Note ---
ED Visit Note Received this patient in signout from Dr. Garcia. See her note for full details of initial evaluation and full history. In short, the patient came in last night reporting abdominal discomfort in the epigastrium wraping towards the back with nausea. Blood work obtained was reassuring without findings of leukocytosis or anemia. No skin electrolyte abnormalities or renal dysfunction is noted or findings consistent with hepatitis or pancreatitis. Negative testing as well as urinalysis is noted. EKG obtained as well as was reassuring in addition to the normal troponin does not seem to indicate this is cardiac related. No significant respiratory complaints reported I do not believe the patient suffering from a PE. CT imaging of the abdomen pelvis was completed to further evaluate for abdominal symptoms. Has in the past had GI evaluation and scopes. CT imaging shows per radiology report show mild pericolonic edema and fluid but no gallbladder wall thickening or gallstones noted. No bowel obstruction noted per radiology report with a moderate to large amount of well formed stool noted. No other significant acute abnormality noted. Reassessment the patient states her pain is still fairly severe in the epigastrium upper quadrant little bit of nausea. Discussed findings. Given her continued significant symptoms here will complete an ultrasound of the gallbladder. Given some Toradol and Zofran for symptom control. Gallbladder ultrasound shows tiny stones and some sludge with pericholecystic fluid slight thickened wall of 0.4 cm concerning for acute cholecystitis. She did receive some pain medicine and as such negative Cruz sign on imaging. CBD 0.4 cm and again LFTs here without significant abnormality. Patient with some improvement of her abdominal discomfort on exam. Did reach out discussed with general surgery Dr. Horne recommended antibiotics and states plan for likely gallbladder surgery in the morning. Did reach out to the medical team for admission per request. Patient agreeable with this plan. EK bpm normal sinus rhythm. No PVC or PAC. No acute ST segment elevation or depression with QTc 413 and some nonspecific T wave changes. .
[2023-09-23] MEDS: OPTIRAY 320 100ml IV ONE (07:37)
--- NOTE | 2023-09-23 08:10 | CT Scan Report ---
ABDOMEN AND PELVIS CT WITH IV CONTRAST CT DOSE: 846.25 mGy.cm HISTORY: abd pain into back TECHNIQUE: Multiaxial CT images of the abdomen and pelvis were performed following the use of intrave nous contrast. A dose lowering technique was utilized adhering to the principles of ALARA. COMPARISON STUDY: Abdomen and pelvis CT 01/07/2023. FINDINGS: A partially visualized 8 mm enhancing nodule in the right breast is again noted. The lung b ases are clear. No pneumoperitoneum. No pneumatosis. No acute fractures. There is a tiny hiatus herni a. Small fat-containing umbilical hernia. The liver, pancreas, spleen, and adrenal glands are unremar kable. Normal left kidney. A 7 mm hypodense lesion within the right kidney is too small to characteri ze but remain stable and therefore favors a cyst. No renal stones or hydronephrosis. The main portal vein is patent. Normal caliber abdominal aorta. No retroperitoneal or pelvic lymphadenopathy. No pelv ic free fluid. The bladder is unremarkable. An intrauterine device is again noted. No bowel wall thic kening or obstruction. Normal appendix. Moderate to large amount well-formed stool seen throughout th e colon. Mild pericholecystic fluid/edema. However, no gallbladder wall thickening. No gallstones silvana ntified. IMPRESSION: 1. Mild pericholecystic edema/fluid. However, no gallbladder wall thickening. No gallstones identifie d. This could be due to overhydration or underlying hepatic pathology. Acute cholecystitis is not exc luded by imaging. Clinical correlation recommended. 2. No bowel wall thickening or obstruction. 3. Moderate to large amount of well-formed stool seen throughout the colon. 4. A partially visualized 8 mm enhancing nodule in the right breast is again noted. 5. Additional findings as described above. ACT 112: Negative or not required by law. Electronically signed by: Mukul Hinds M.D. 09/23/2023 8:07 AM
[2023-09-23] MEDS: KETOROLAC TROMETHAMINE 15 MG/ML VIAL IV ONE (08:54)
--- NOTE | 2023-09-23 10:41 | Ultrasound Report ---
ABDOMINAL ULTRASOUND, RIGHT UPPER QUADRANT HISTORY: epigastric pain, nausea. COMPARISON: Abdomen and pelvis CT 09/23/2023. FINDINGS: Pancreas: The pancreas demonstrates a normal echotexture. Liver: Unremarkable. Gallbladder: Small stones and sludge seen within the gallbladder. Pericholecystic fluid with a thicke parth gallbladder wall measuring up to 4 mm. Difficult evaluation for a sonographic Cruz's sign due t o the patient's pain medication. CBD: 4 mm. Right kidney: No hydronephrosis. An 8 mm cyst. IMPRESSION: Pericholecystic fluid with a thickened gallbladder wall and small stones/sludge within the gallbladde r. This is concerning for an acute cholecystitis. Surgical consultation recommended. ACT 112: Negative or not required by law. Electronically signed by: Mukul Hinds M.D. 09/23/2023 10:38 AM
[2023-09-23] MEDS: PIPERACILLIN/TAZOBACTAM 4.5 GM/100 ML BAG IV ONE (11:22)
--- NOTE | 2023-09-23 11:23 | History & Physical Report ---
Date of Service September 23, 2023 Assessment & Plan (1) Acute cholecystitis: Plan: Acute cholecystitis CTA/P revealing for mild pericholecystic fluid without gallbladder wall thickening, acute cholecystitis not excluded. Right 8 mm enhancing breast nodule redemonstrated. No bowel wall thickening or obstruction. - Gallbladder ultrasound with pericholecystic fluid and thickened gallbladder wall with small stones/sludge consistent with acute cholecystitis for which surgery was consulted. Patient was recommended for medical admission with surgical consultation. No transaminitis/hyperbilirubinemia, no evidence of obstruction No leukocytosis Continue Zosyn Multimodal pain control, Tylenol/Toradol/breakthrough morphine N.p.o. IV FM LR 20 cc/h RCRI 0 points, low risk. Recommended to proceed with surgery as indicated Patient is not septic on admission (2) Migraine with aura: Plan: History of migraine with aura, trigeminal neuralgia, fibromyalgia Patient on Ajovy monthly Continue propranolol 20 mg twice daily Continue duloxetine, nortriptyline, riboflavin, magnesium. Receives Botox as outpatient May use Nurtec if acute migraine develops (3) Cervical radiculopathy: Plan: History of cervical radiculopathy No acute strength/sensation changes. No acute intervention indicated at time of admission (4) At increased risk for malignant neoplasm of breast: Plan: Mammogram 04/2023, 04/2022 reviewed. Negative. Dense breast tissue lowering sensitivity. Enhancing 8 mm nodule redemonstrated. This was seen on 01/07/2023 CT-A/P, hyperdense 12 mm nodule at that time - BRCA gene testing negative in 2014 Discussed with patient. Does not show high risk features and reduced in size. (5) Hypothyroidism: Plan: History of hypothyroidism Continue Synthroid 100 mcg TSH pending Clinically euthyroid (6) Irritable bowel syndrome: Plan: IBS GI notes reviewed. GERD stable on PPI. Patient is not had symptomatic relief with H2 blockers in the past.History of Burris's 2018, but to follow-up EGDs were negative. Next due 2026. - Can continue Linzess 290mcg daily for IBS. MiraLAX as needed Plan DVT prophylaxis: Heparin twice daily, hold a.m. of 09/24/2023 for anticipated surgery. CODE STATUS: Full code Diet: N.p.o. Disposition: Medical/surgical History of Present Illness Primary Care Provider: DO Mnady Ortiz is a 43-year-old female with past medical history of asthma, trigeminal neuralgia, fibromyalgia, GERD, IBS, hypothyroidism, chronic fatigue syndrome, cervical radiculopathy, and migraine with aura who presents to the emergency department with epigastric abdominal discomfort and nausea. She did not have a leukocytosis, hemoglobin was normal, creatinine was 0.64, she did not have an elevated bilirubin or transaminitis, troponin was normal, and lipase was not elevated. UA is not infected appearing. CTA/P revealing for mild pericholecystic fluid without gallbladder wall thickening, acute cholecystitis not excluded. Right 8 mm enhancing breast nodule redemonstrated. No bowel wall thickening or obstruction. Follow-up gallbladder ultrasound with pericholecystic fluid and thickened gallbladder wall with small stones/sludge consistent with acute cholecystitis for which surgery was consulted. Patient was recommended for medical admission with surgical consultation. Seen at the bedside Four episodes of severe abdominal pin after meals in the last month. Provoked once by pizza, once by sausage. Fatty meals seem to be worse and cause pain. Pain is in the epigastric and last night radiated to the right side. +Nausea, nonbloody/nonbilious emesis. This past week had some radiation to the right back. Came in today because symptoms are most persistent. +sweats and chills, had a temperature of ~99.4 with her second episode earlier in the month. IBS-C at baseline. 'Mostly under control with linzess' in the past month, also takes metamucil +/- miralax. BMs have been thin, brown this month. No rakesh colored stool, white stool. no black or bloody BMs. No chest pain or chest pressure. No shortness of breath. Migraines doing well with botox/ajovy and nurtec PRN. No recent migraines. No m igraine on admission. Did try nurtec last night for the intense nausea/stomach pain but did not help. Gets visual landon when she does have a migraine No history of kidney disease, bloot clots, ischemic disease Medical History: Reviewed Medications: Reviewed Surgical History: Reviewed Family history: Reviewed Allergies: Reviewed. NKDA Social History: No tobacco use. Rare social alcohol use. Was on vacation this week and had wine and a few martinis, thinks this may have contributed to her episode sunday. Code Status: Full Code Allergies Allergy/AdvReac Type Severity Reaction Status Date / Time carbamazepine [From Tegretol] AdvReac liver Verified 08/20/23 09:07 problems [id number] Antimigraine AdvReac SIDE Verified 08/20/23 09:07 Agents EFFECTS Home Medications Medication Instructions Recorded Confirmed Type acetaminophen 500 mg tablet 1,000 mg PO Q6H PRN Pain 02/27/18 08/20/23 History (Tylenol Extra Strength) cetirizine 10 mg tablet (Zyrtec) 10 mg PO DAILY 02/27/18 08/20/23 History omeprazole 40 mg capsule,delayed 40 mg PO .TAKE 1 CAPSULE Daily 10/31/18 08/20/23 History release levothyroxine 100 mcg tablet 100 mcg PO DAILY 06/04/19 08/20/23 History ermtwbm-ymqegidwxrmim-unotpttv 250 1 tab PO Q6H PRN 12/06/20 08/20/23 History mg-250 mg-65 mg tablet (Excedrin Extra Strength) fluticasone propionate 50 intranasal PRN 12/06/20 08/20/23 History mcg/actuation nasal spray,suspension olopatadine 0.1 % eye drops 1 drp OPB UD PRN 12/06/20 08/20/23 History (Patanol) onabotulinumtoxinA [Botox] intradermal 01/20/21 08/20/23 History methocarbamol 500 mg tablet 500 mg PO BID PRN neck pain 30 07/25/22 08/20/23 Rx days #30 tabs magnesium glycinate 400 mg (4 x 100 mg magnesium) PO 02/08/23 08/20/23 Rx DAILY #30 caps riboflavin (vitamin B2) 400 mg 400 mg PO DAILY #30 tabs 02/08/23 08/20/23 Rx tablet rimegepant 75 mg disintegrating 75 mg PO ONCE PRN migraine 03/26/23 08/20/23 Rx tablet (Nurtec ODT) headache #8 tabs fremanezumab-vfrm 225 mg/1.5 mL 225 mg (1.5 mL) subcut ONCE 30 05/24/23 08/20/23 Rx subcutaneous auto-injector (Ajovy) days #1.5 mL nortriptyline 10 mg capsule See Rx Instructions .Route 05/24/23 08/20/23 Rx .COMPLEX #90 caps duloxetine 30 mg capsule,delayed See Rx Instructions .Route 08/09/23 08/20/23 Rx release .COMPLEX #30 caps duloxetine 60 mg capsule,delayed See Rx Instructions .Route 08/09/23 08/20/23 Rx release .COMPLEX #30 caps propranolol 20 mg tablet 20 mg PO BID 90 days #180 tabs 08/21/23 Rx baclofen 20 mg tablet See Rx Instructions .Route 09/17/23 Rx .COMPLEX #90 tabs Past Med/Surg History Problem List Acute cholecystitis Abdominal pain (Acute) Dense breast tissue Family history of malignant neoplasm of breast At increased risk for malignant neoplasm of breast ELEVATED T/C SCORE Migraine with aura Abnormal uterine bleeding (AUB) Chronic migraine Pre-menstrual syndrome Macromastia Trigeminal neuralgia (Chronic) Thyroid disorder (Chronic) Asthma Fibromyalgia GERD (gastroesophageal reflux disease) Irritable bowel syndrome Encounter for annual routine gynecological examination Family history of malignant neoplasm of endometrium Hypothyroidism (Chronic) Chronic fatigue (Acute) Cervical radiculopathy (Acute) Presence of 52 mg levonorgestrel-releasing intrauterine device (IUD) 04/2019 [facility] Medical History Dysmenorrhea Neck pain Tingling Menorrhagia Pelvic pain History of trigeminal neuralgia History of varicella Hx of mitral valve prolapse History of cellulitis Bartholin gland cyst Anemia affecting Surgical History S/P tubal ligation 12/15/13 H/O oral surgery Family History Mother Barretts esophagus Hyperparathyroidism Breast cancer, Onset Age: 43 Uterine cancer Hypothyroid Father Hypertension Grandmother (Maternal) Hypertension Hypothyroid Aunt Hypothyroid Maternal Aunt Breast cancer, Onset Age: 70 Grandfather (Maternal) Salivary gland cancer Other History of angina History of heart artery stent Social History Smoking Status: Never smoker Do You Dip or Chew Tobacco: No; Hx Alcohol Use: Yes Alcohol type: beer and wine Alcohol Intake Frequency: Monthly or Less Hx Substance Use: No Preferred Language: Spanish Visual Impairment: No Limitations Hearing Ability: Normal Beliefs That Will Affect Care: None marital status: Current Living Situation: Spouse current occupational status: 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 NAD. Cooperative. HEENT: Atraumatic, normocephalic. Vision/hearing intact, pulls equal and reactive to light Pulm: CTAB A&P. -wheezes, -rales, -rhonchi. Symmetrical chest rise. No increased work of breathing. No respiratory distress. Cardiac: RRR, -mrg. Radial pulses intact and symmetrical. Abdominal: Epigastric and right upper quadrant tenderness to palpation. No left -sided or lower quadrant tenderness to palpation. No rebound or involuntary guarding. Extremities: Warm and dry, moves all extremities equally Results & Data Results & Data Vital Signs (Past 12 Hours) Vital Signs Temp Pulse Pulse Resp BP BP Pulse Ox 09/23/23 10:09 76 09/23/23 09:30 85 12 100 09/23/23 09:00 65 10 L 99 09/23/23 09:00 109/77 09/23/23 09:00 109/77 09/23/23 08:39 67 6 L 98 09/23/23 08:00 136/82 09/23/23 08:00 66 10 L 99 09/23/23 08:00 136/82 09/23/23 07:12 72 12 100 09/23/23 07:06 146/98 H 09/23/23 07:06 146/98 H 09/23/23 07:00 67 18 146/98 H 09/23/23 06:54 74 11 L 100 09/23/23 06:00 72 09/23/23 05:45 71 20 156/90 H 99 09/23/23 04:43 36.7 C 74 18 168/113 H 100 O2 Del Method 09/23/23 10:09 09/23/23 09:30 09/23/23 09:00 09/23/23 09:00 09/23/23 09:00 09/23/23 08:39 09/23/23 08:00 09/23/23 08:00 09/23/23 08:00 09/23/23 07:12 09/23/23 07:06 09/23/23 07:06 09/23/23 07:00 09/23/23 06:54 09/23/23 06:00 09/23/23 05:45 Room Air 09/23/23 04:43 Room Air PG Care Time/CCT Total # of Minutes Spent Total Time Spent with Patient: Total time spent is greater than 50% in coordination of care (as documented) at patient's floor/unit and/or counseling patient: Coding Level of Care Code 52901 INT INP/OBS CARE 2/55MIN Diagnoses Acute cholecystitis K81.0 Migraine with aura G43.109 Cervical radiculopathy M54.12 At increased risk for malignant neoplasm of breast Z91.89 Hypothyroidism E03.9 Irritable bowel syndrome K58.9
[2023-09-23] MEDS ORDERED: MoRPHine SULFATE 4 MG/ML 1 ML CARP\\VIAL IV PRN (11:53)
[2023-09-23] MEDS ORDERED: MoRPHine SULFATE 2 MG/ML CARP IV PRN (11:53)
[2023-09-23] MEDS ORDERED: ONDANSETRON INJ 2 MG/ML 2 ML VIAL IV PRN (11:53)
[2023-09-23] MEDS: LACTATED RINGER'S 1,000 ML IV SCH (12:16)
[2023-09-23] MEDS: PIPERACILLIN/TAZOBACTAM 4.5 GM in DEXTROSE 5% MINI-B 100 ML IV SCH (16:29)
[2023-09-23] MEDS: KETOROLAC TROMETHAMINE 15 MG/ML VIAL IV PRN (20:12)
[2023-09-24 06:16] LABS: Basophils # (auto) 0.05 K/uL (0.00-0.20); Basophils % (auto) 0.8 %; Eosinophils # (auto) 0.41 K/uL (0.00-0.50); Eosinophils % (auto) 6.5 %; Hematocrit (blood only) 35.5 % (37.0-47.0); Hemoglobin 11.9 g/dl (12.0-16.0); Immature Granulocytes # (auto) 0.02 K/uL (0.01-0.20); Immature Granulocytes % (auto) 0.3 %; Lymphocytes # (auto) 2.43 K/uL (1.20-3.40); Lymphocytes % (auto) 38.4 %; Mean Corpuscular Hemoglobin 30.4 pg (25.0-34.0); Mean Corpuscular Hgb Conc 33.5 g/dL (32.0-36.0); Mean Corpuscular Volume 90.8 fL (80.0-100.0); Monocytes # (auto) 0.48 K/uL (0.11-0.59); Monocytes % (auto) 7.6 %; Neutrophils # (auto) 2.93 K/uL (1.40-6.50); Neutrophils % (auto) 46.4 %; Platelet Count 256 K/uL (130-400); RDW Coefficient of Variation 12.2 % (11.5-14.5); RDW Standard Deviation 40.3 fL (36.4-46.3); Red Blood Count 3.91 M/uL (4.20-5.40); White Blood Count 6.32 K/ul (4.8-10.8)
[2023-09-24 06:27] LABS: Albumin Level 3.4 gm/dl (3.4-5.0); BUN Creatinine Ratio 11.8 (10-20); Bilirubin Direct 0.1 mg/dl (0-0.2); Bilirubin,Total 0.6 mg/dl (0.2-1.0); Calcium 8.3 mg/dl (8.6-10.3); Creatinine Clr Calc Pharmacy 81.9 ml/min; Est GFR (African American) 97.3 ml/min; Est GFR (Non-African American) 83.9 ml/min; Potassium 3.7 mmol/L (3.5-5.1); Total Protein 5.1 gm/dl (6.0-8.3)
--- NOTE | 2023-09-24 08:09 | Surgery Consultation ---
Date of Consultation September 24, 2023 Assessment & Plan (1) Acute cholecystitis: IV abx IVF medically cleared lap shiva today Present on Admission?: Yes History of Present Illness Attending Physician: Uriel Lacey MD History of Present Illness This is a 43YO admitted from ED with epigastric abdominal discomfort and nausea. A shows stones and mild pericholecystic fluid without gallbladder wall thickening. She does not have leukocytosis or elevated LFTs. An ultrasound shows stones/sludge consistent with acute cholecystitis. She has had multiple episodes of severe abdominal pin after meals in the last month with nausea, nonbloody/nonbilious emesis. This past week had some radiation to the right back. She claims sweats and chills. Allergies Allergy/AdvReac Type Severity Reaction Status Date / Time carbamazepine [From Tegretol] AdvReac liver Verified 08/20/23 09:07 problems [id number] Antimigraine AdvReac SIDE Verified 08/20/23 09:07 Agents EFFECTS Home Medications Medication Instructions Recorded Confirmed Type acetaminophen 500 mg tablet 1,000 mg PO Q6H PRN Pain 02/27/18 09/23/23 History (Tylenol Extra Strength) cetirizine 10 mg tablet (Zyrtec) 10 mg PO HS 02/27/18 09/23/23 History omeprazole 40 mg capsule,delayed 40 mg PO QAM 10/31/18 09/23/23 History release levothyroxine 100 mcg tablet 100 mcg PO QAM 06/04/19 09/23/23 History tesewgm-eazrtlmbjcuqn-gfisxcgb 250 1 tab PO Q6H PRN Migraine Headache 12/06/20 09/23/23 History mg-250 mg-65 mg tablet (Excedrin Extra Strength) fluticasone propionate 50 1 spray intranasal HS PRN Other 12/06/20 09/23/23 History mcg/actuation nasal spray,suspension olopatadine 0.1 % eye drops 1 drp OPB UD PRN Other 12/06/20 09/23/23 History (Patanol) onabotulinumtoxinA [Botox] 1 dose intradermal .[id number] 01/20/21 09/23/23 History methocarbamol 500 mg tablet 500 mg PO BID PRN neck pain 30 07/25/22 09/23/23 Rx days #30 tabs rimegepant 75 mg disintegrating 75 mg PO ONCE PRN migraine 03/26/23 09/23/23 Rx tablet (Nurtec ODT) headache #8 tabs propranolol 20 mg tablet 20 mg PO BID 90 days #180 tabs 08/21/23 09/23/23 Rx albuterol sulfate 90 mcg/actuation 2 puff inhalation QID PRN Other 09/23/23 09/23/23 History aerosol inhaler baclofen 20 mg tablet 20 mg PO TID 09/23/23 09/23/23 History duloxetine 30 mg capsule,delayed 30 mg PO QAM 09/23/23 09/23/23 History release duloxetine 60 mg capsule,delayed 60 mg PO QAM 09/23/23 09/23/23 History release fremanezumab-vfrm 225 mg/1.5 mL 225 mg subcut MONTHLY 09/23/23 09/23/23 History subcutaneous auto-injector (Ajovy) linaclotide 290 mcg capsule 290 mcg PO QAM 09/23/23 09/23/23 History (Linzess) magnesium glycinate 400 mg PO HS 09/23/23 09/23/23 History nortriptyline 10 mg capsule 30 mg PO HS 09/23/23 09/23/23 History riboflavin (vitamin B2) 400 mg 400 mg PO HS 09/23/23 09/23/23 History tablet Patient History Medical History Dysmenorrhea Neck pain Tingling Menorrhagia Pelvic pain History of trigeminal neuralgia History of varicella Hx of mitral valve prolapse History of cellulitis Bartholin gland cyst Anemia affecting Surgical History S/P tubal ligation 12/15/13 H/O oral surgery Family History Mother Barretts esophagus Hyperparathyroidism Breast cancer, Onset Age: 43 Uterine cancer Hypothyroid Father Hypertension Grandmother (Maternal) Hypertension Hypothyroid Aunt Hypothyroid Maternal Aunt Breast cancer, Onset Age: 70 Grandfather (Maternal) Salivary gland cancer Other History of angina History of heart artery stent Social History Smoking Status: Never smoker Do You Dip or Chew Tobacco: No; Hx Alcohol Use: Yes Alcohol type: wine Alcohol Intake Frequency: Monthly or Less Hx Substance Use: No Preferred Language: Emirati Communication Ability: Effective Visual Impairment: No Limitations Hearing Ability: Normal Economic Research Analyst Required: No Beliefs That Will Affect Care: None marital status: Current Living Situation: Spouse Current Living Situation Comment: With current occupational status: 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 Other Information That Helps Us Care for You: No Feels Safe at Home: Yes Safety Concerns: Feels Safe At This Time Dental Care, Regularly: No Seatbelt Use: always Sunscreen Use: Yes Review of Systems Constitutional: + fever, + chills and + anorexia Eyes: no problem reported Ear, Nose, Mouth, Throat: no problem reported Respiratory: no cough and no dyspnea Cardiovascular: no chest pain Gastrointestinal: + abdominal pain, + nausea and + vomitin g; no change in bowel habits Genitourinary: no dysuria Musculoskeletal: + back pain Integumentary: no problem reported Neurologic: no localized weakness and no generalized weakness Psychiatric: no behavioral changes Endocrine: no problem reported Hematologic / Lymphatic: no problem reported Allergy / Immunological: no problem reported Physical Exam Constitutional: WD/WN, vitals as above Eyes: PERRL, conjunctivae normal, anicteric sclerae ENMT: external ear and nose normal, oropharynx normal Neck: trachea midline Respiratory: normal respiratory effort, lungs clear to auscultation Cardiovascular: RRR, no murmur, no edema Gastrointestinal (Abdomen): Inspection/Auscultation: abdomen normal to inspection, normal bowel sounds and + abdominal surgical scar; abdomen not distended Percussion/Palpation: + abdomen tender and abdomen soft; no guarding and abdomen not rigid Musculoskeletal: Head/Neck/Chest: normocephalic and head atraumatic Skin: no rashes, warm and dry Psychiatric: Orientation: alert and oriented x 3 Results & Data Vital Signs (Past 12 Hours) Vital Signs Temp Pulse Pulse Resp BP BP Pulse Ox 09/24/23 07:49 36.7 C 84 18 140/78 96 09/23/23 20:30 36.8 C 69 18 112/73 99 O2 Del Method 09/24/23 07:49 Room Air 09/23/23 20:30 Room Air Diagnostic Findings ABDOMINAL ULTRASOUND, RIGHT UPPER QUADRANT HISTORY: epigastric pain, nausea. COMPARISON: Abdomen and pelvis CT 09/23/2023. FINDINGS: Pancreas: The pancreas demonstrates a normal echotexture. Liver: Unremarkable. Gallbladder: Small stones and sludge seen within the gallbladder. Pericholecystic fluid with a thickened gallbladder wall measuring up to 4 mm. Difficult evaluation for a sonographic Cruz's sign due to the patient's pain medication. CBD: 4 mm. Right kidney: No hydronephrosis. An 8 mm cyst. IMPRESSION: Pericholecystic fluid with a thickened gallbladder wall and small stones/sludge within the gallbladder. This is concerning for an acute cholecystitis. Surgical consultation recommended.
[2023-09-24] MEDS ORDERED: ePHEDrine sulfate 50 MG/ML AMP IV PRN (08:17)
[2023-09-24] MEDS ORDERED: ATROPINE SULFATE 0.1 MG/ML 10ML SYR IV PRN (08:17)
--- NOTE | 2023-09-24 08:27 | Anesthesiology Consultation ---
Date of Service September 24, 2023 Assessment & Plan Chart Review Chart Review: Acceptable Risk for Surgery Consults Requested none ASA ASA2 Proposed Anesthesia Anesthesia Type: General Risk / Benefits Reviewed With: PT / POA / Parent / Guardian, Accepts Plan and Informed Consent Obtained History Surgery Operation Date: 09/24/23 07:00 Proposed Procedures p Laparoscopic Cholecystectomy - Tavo Horne MD Height/Weight Height: 5 ft 4 in Weight: 69.853 kg Allergies Allergy/AdvReac Type Severity Reaction Status Date / Time carbamazepine [From Tegretol] AdvReac liver Verified 08/20/23 09:07 problems [id number] Antimigraine AdvReac SIDE Verified 08/20/23 09:07 Agents EFFECTS Medications Home Medications Medication Instructions Recorded Confirmed Last Taken acetaminophen 500 mg tablet 1,000 mg PO Q6H PRN Pain 02/27/18 09/23/23 Unknown (Tylenol Extra Strength) cetirizine 10 mg tablet (Zyrtec) 10 mg PO HS 02/27/18 09/23/23 09/22/23 omeprazole 40 mg capsule,delayed 40 mg PO QAM 10/31/18 09/23/23 09/22/23 release levothyroxine 100 mcg tablet 100 mcg PO QAM 06/04/19 09/23/23 09/22/23 cnuqmkv-xbdbyzjwbmrny-rlktjbhd 250 1 tab PO Q6H PRN Migraine Headache 12/06/20 09/23/23 Unknown mg-250 mg-65 mg tablet (Excedrin Extra Strength) fluticasone propionate 50 1 spray intranasal HS PRN Other 12/06/20 09/23/23 Unknown mcg/actuation nasal spray,suspension olopatadine 0.1 % eye drops 1 drp OPB UD PRN Other 12/06/20 09/23/23 Unknown (Patanol) onabotulinumtoxinA [Botox] 1 dose intradermal .[id number] 01/20/21 09/23/23 Unknown methocarbamol 500 mg tablet 500 mg PO BID PRN neck pain 30 07/25/22 09/23/23 Unknown days #30 tabs rimegepant 75 mg disintegrating 75 mg PO ONCE PRN migraine 03/26/23 09/23/23 Unknown tablet (Nurtec ODT) headache #8 tabs propranolol 20 mg tablet 20 mg PO BID 90 days #180 tabs 06/18/24 07/21/24 07/20/24 albuterol sulfate 90 mcg/actuation 2 puff inhalation QID PRN Other 09/23/23 09/23/23 Unknown aerosol inhaler baclofen 20 mg tablet 20 mg PO TID 09/23/23 09/23/23 09/22/23 duloxetine 30 mg capsule,delayed 30 mg PO QAM 09/23/23 09/23/23 09/22/23 release duloxetine 60 mg capsule,delayed 60 mg PO QAM 09/23/23 09/23/23 09/22/23 release fremanezumab-vfrm 225 mg/1.5 mL 225 mg subcut MONTHLY 09/23/23 09/23/23 Unknown subcutaneous auto-injector (Ajovy) linaclotide 290 mcg capsule 290 mcg PO QAM 09/23/23 09/23/23 09/22/23 (Linzess) magnesium glycinate 400 mg PO HS 09/23/23 09/23/23 09/22/23 nortriptyline 10 mg capsule 30 mg PO HS 09/23/23 09/23/23 09/22/23 riboflavin (vitamin B2) 400 mg 400 mg PO HS 09/23/23 09/23/23 09/22/23 tablet Active Medications Generic Name Dose Route Start Last Admin Trade Name Freq PRN Reason Stop Dose Admin Lactated Ringer's 1,000 mls @ 100 mls/hr 09/23/23 12:00 09/24/23 05:11 Lr IV 10/23/23 11:59 125 mls/hr .Q10H OSIRIS Administration Piperacillin Sod/Tazobactam 100 mls @ 25 mls/hr 09/23/23 17:00 09/24/23 05:02 Sod 4.5 gm/ Dextrose IV 10/03/23 16:59 Infused Q8H OSIRIS Infusion Protocol Ketorolac Tromethamine 10 mg 09/23/23 11:53 09/23/23 20:12 Ketorolac Tromethamine 15 Mg/Ml Vial IV 09/28/23 11:52 10 mg Q6H PRN Administration Pain NPO Date Last Intake of Fluids: 09/24/23 Time Last Intake of Fluids: 00:00 Date Last Intake of Solids: 09/22/23 Time Last Intake of Solids: 19:00 Past Medical History Medical History Dysmenorrhea Neck pain Tingling Menorrhagia Pelvic pain History of trigeminal neuralgia History of varicella Hx of mitral valve prolapse History of cellulitis Bartholin gland cyst Anemia affecting Exercise / Class Metabolic Activity II 4-5 Yardwork/Stairs/Walk up hill Past Family History Family History Mother Barretts esophagus Hyperparathyroidism Breast cancer, Onset Age: 43 Uterine cancer Hypothyroid Father Hypertension Grandmother (Maternal) Hypertension Hypothyroid Aunt Hypothyroid Maternal Aunt Breast cancer, Onset Age: 70 Grandfather (Maternal) Salivary gland cancer Other History of angina History of heart artery stent Past Surgical History Surgical History S/P tubal ligation 12/15/13 H/O oral surgery Past Anesthesia History No Hx of Anesthesia Complications and No Family Hx of Anesthesia Complications History of PONV No Hx of PONV and No Hx of Motion Sickness Social History Smoking Status: Never smoker Do You Dip or Chew Tobacco: No Hx Alcohol Use: Yes Alcohol type: wine alcohol intake frequency: holidays/special occasions only Hx Substance Use: No Physical Exam Vital Signs Last Vital Signs Temp 98.1 F 09/24/23 07:49 Pulse 84 09/24/23 07:49 Resp 18 09/24/23 07:49 BP 140/78 09/24/23 07:49 Pulse Ox 96 09/24/23 07:49 O2 Del Method Room Air 09/24/23 07:49 ENMT Mouth: no dentition abnormality Thyromental Distance: < 3.5 Finger Breadths Mallampati Class: II Neck normal visual inspection Respiratory normal respiratory effort Auscultation: lungs clear to auscultation bilaterally Cardiovascular Rate/Rhythm: regular rate and regular rhythm Testing Laboratory Results 09/24/23 05:37 09/24/23 05:37 Urine Color Yellow 09/23/23 04:55 Urine Appearance Clear (Clear) 09/23/23 04:55 Urine pH 6.0 (4.5-7.5) 09/23/23 04:55 Ur Specific [place] 1.017 (1.000-1.030) 09/23/23 04:55 Urine Protein Negative (Negative) 09/23/23 04:55 Urine Glucose (UA) Negative (Negative) 09/23/23 04:55 Urine Ketones Negative (Negative) 09/23/23 04:55 Urine Nitrite Negative (Negative) 09/23/23 04:55 Ur Leukocyte Esterase Negative (Negative) 09/23/23 04:55 Urine WBC (Auto) 0-5 /hpf (0-5) 09/23/23 04:55 Urine RBC (Auto) 0-2 /hpf (0-2) 09/23/23 04:55 U Hyaline Cast (Auto) 0-2 /lpf (0-2) 09/23/23 04:55 U Epithel Cells (Auto) 0-2 /hpf (0-2) 09/23/23 04:55 Urine Bacteria (Auto) None Seen (None Seen) 09/23/23 04:55
[2023-09-24] MEDS ORDERED: MIDAZOLAM HCL 1 MG/ML 2ML VIAL ONE (08:33)
[2023-09-24] MEDS ORDERED: fentaNYL citrate PF 100 MCG/2 ML VIAL ONE (08:33)
--- NOTE | 2023-09-24 08:34 | XRay Report ---
XR chest 1V portable HISTORY: pre-op COMPARISON: Chest 02/27/2018. FINDINGS: The lungs are clear. Cardiac silhouette is normal in size. No pleural effusions. No pneumot horax. IMPRESSION: No acute process. ACT 112: Negative or not required by law. Electronically signed by: Mukul Hinds M.D. 09/24/2023 8:33 AM
[2023-09-24] MEDS: LACTATED RINGER'S 1,000 ML IV SCH (08:36)
[2023-09-24] MEDS ORDERED: ROCURONIUM BROMIDE 10 MG/ML 5 ML VIAL IV ONE (08:38)
[2023-09-24] MEDS ORDERED: LIDOCAINE 2% 2 ML VIAL/AMP(20MG/ML) INFIL ONE (08:38)
[2023-09-24] MEDS ORDERED: PROPOFOL IV EMULSION 10 MG/ML 20 ML VIAL IV ONE (08:38)
[2023-09-24] MEDS ORDERED: ONDANSETRON INJ 2 MG/ML 2 ML VIAL ONE (09:08)
[2023-09-24] MEDS ORDERED: DEXAMETHASONE SOD INJ 4 MG/ML VIAL ONE (09:08)
[2023-09-24] MEDS ORDERED: SUGAMMADEX SODIUM 200 MG/2 ML VIAL IV ONE (09:28)
[2023-09-24] MEDS: BUPIVACAINE/EPINEPHRINE 0.5% MPF 1:200,000 30 ML VIAL ONE (09:36)
--- NOTE | 2023-09-24 09:48 | Operative Report ---
Post Operative Report Pre & Post Diagnosis Operation Date: 09/24/23 07:00 Acute cholecystitis I identified the patient and participated in the time-out.: Yes Procedure Operation Date: 09/24/23 07:00 Laparoscopic cholecystectomy Surgeon Tavo Horne MD Title Department Manager None Estimated Blood Loss 10 Findings Consistent with Post-Op Diagnosis Acute inflammatory changes consistent with acute cholecystitis Specimens Gallbladder to pathology Drains None Anesthesia Type General Complications None Indications This is a 43-year-old female was admitted through the ED last night with acute abdominal pain. She underwent a workup which showed acute cholecystitis. We talked in detail about this and recommended laparoscopic cholecystectomy. She is understands all the risks and wishes to proceed. Description of Procedure The patient was taken the OR, placed in the supine position and underwent excellent general endotracheal anesthesia. Their abdomen is prepped and draped normal sterile fashion. A transverse supraumbilical incision was made and dissection was taken down to identify the anterior fascia. Two Vicryl' sutures were placed on either side of the midline and his midline was then incised. The peritoneal cavity was entered bluntly with Drea clamp. A 12mm Rice trocar was then inserted and secured. Good pneumoperitoneum was achieved to 15 mmHg pressure. The patient was placed in head up and rolled to the left position. A 11mm subxiphoid and two 5mm lateral ports were placed in the normal fashion. The gallbladder was identified and was acutely inflamed. The fundus of the gallbladder was grasped and retracted superiorly. The neck of the gallbladder was grasped and then retracted laterally. This splayed open the Hepatocystic triangle. Attention was then turned to taking down the peritoneal attachments and identify the cystic duct and cystic artery. Once these were skeletonized and a medial and lateral window was created between the gallbladder fossa and the duct, thereby ensuring the critical view. Then three clips were then placed distally on cystic duct one proximally on the cystic duct, it was then transected. Two clips were then placed approximately on the cystic artery one distally, the cystic artery was transected. An electrocautery hook was then used to move the gallbladder off the gallbladder fossa. There was some no bile spillage. The gallbladder was then placed into an Endobag and brought out through the supraumbilical incision. The pneumoperitoneum was re-established and abdomen was irrigated out until the suction fluid was clear. There were some areas on the gallbladder fossa which were raw which were cauterized.The ports were then removed and the abdomen decompressed. The fascia of the supraumbilical incision was closed with Vicryls. 0.5% Marcaine with epinephrine local was to create a local field block. Interrupted Vicryl was used to close the skin. Dermabond was used to reinforce the incisions. Sterile dressings were applied. Patient tolerated the procedure without complication and sent to the postop recovery period of observation. They will then be sent to the floor for the rest of their care. I attest to the content of the Intraoperative Record and any orders documented therein. Any exceptions are noted below.
[2023-09-24] MEDS ORDERED: MoRPHine SULFATE 2 MG/ML CARP IV PRN ×2 (09:52→10:51)
[2023-09-24] MEDS ORDERED: MoRPHine SULFATE 4 MG/ML 1 ML CARP\\VIAL IV PRN ×2 (09:52→10:51)
[2023-09-24] MEDS: ONDANSETRON INJ 2 MG/ML 2 ML VIAL IV PRN (10:04)
[2023-09-24] MEDS: fentaNYL citrate PF 100 MCG/2 ML VIAL IV PRN (10:08)
--- NOTE | 2023-09-24 10:46 | Anesthesiology Progress Note ---
Date of Service September 24, 2023 Anesthesia Post Procedure Vital Signs Vital Signs: Temp Pulse Pulse Pulse Resp BP BP 09/24/23 10:45 97.7 F 81 16 147/94 H 09/24/23 10:30 99.0 F 90 16 151/92 H 09/24/23 10:20 85 14 143/92 H 09/24/23 10:10 92 H 12 141/91 H 09/24/23 10:00 104 H 14 152/101 H 09/24/23 09:50 97.3 F L 115 H 19 143/82 H 09/24/23 08:25 98.4 F 81 18 121/83 09/24/23 07:49 98.1 F 84 18 140/78 09/23/23 20:30 98.2 F 69 18 09/23/23 13:38 98.4 F 68 16 09/23/23 11:30 75 16 09/23/23 11:00 116/77 09/23/23 11:00 116/77 09/23/23 11:00 116/77 09/23/23 11:00 79 16 BP Pulse Ox O2 Del Method O2 Flow Rate 09/24/23 10:45 100 Room Air 09/24/23 10:30 98 Room Air 09/24/23 10:20 100 Oxymask 2 09/24/23 10:10 100 Oxymask 3 09/24/23 10:00 100 Oxymask 6 09/24/23 09:50 98 Oxymask 6 09/24/23 08:25 98 Room Air 09/24/23 07:49 96 Room Air 09/23/23 20:30 112/73 99 Room Air 09/23/23 13:38 124/84 98 Room Air 09/23/23 11:30 99 09/23/23 11:00 09/23/23 11:00 09/23/23 11:00 09/23/23 11:00 96 Pain Intensity Abdomen: Pain Intensity: 3 Transfer of Care Handoff Completed per policy Notes Mental Status: alert / awake / arousable and participated in evaluation Patient Amnestic to Procedure: Yes Nausea / Vomiting: adequately controlled Pain: adequately controlled Airway Patency, RR, SpO2: stable & adequate BP & HR: stable & adequate Hydration State: stable & adequate Anesthetic Complications: no major complications apparent and Pt Satisfied with anesthetic care
[2023-09-24] MEDS ORDERED: oxyCODONE/ACETAMINOPHEN 5mg/325mg TAB PO PRN (10:51)
[2023-09-24] MEDS: ACETAMINOPHEN 325 MG TAB PO PRN (10:55)
[2023-09-24] MEDS: PANTOprazole 40 MG in SYRINGE 0 ML IV SCH (11:08)
[2023-09-24] MEDS: LEVOTHYROXINE SODIUM 100 MCG TABLET PO SCH (11:08)
[2023-09-24] MEDS: oxyCODONE/ACETAMINOPHEN 5mg/325mg TAB PO PRN (11:23)
--- NOTE | 2023-09-24 12:16 | Hospitalist Progress Note ---
Date of Service September 24, 2023 Assessment & Plan (1) Acute cholecystitis: Plan: Patient presented to ED on 09/22 with complaints of epigastric abdominal pain and nausea. CTA/P revealing for mild pericholecystic fluid without gallbladder wall thickening, acute cholecystitis not excluded. Right 8 mm enhancing breast nodule re-demonstrated. No bowel wall thickening or obstruction. - Gallbladder ultrasound with pericholecystic fluid and thickened gallbladder wall with small stones/sludge consistent with acute cholecystitis -Surgery consulted -s/p lap choley 09/23 -on clear liquid diet -reviewed CBC, CMP 09/23: WBC WNL, LFTs WNL -continue IV Zosyn -pain management as needed with Morphine and oxycodone per surgery -continue IVF until patient has adequate oral intake AM CBC, CMP (2) At increased risk for malignant neoplasm of breast: Plan: Mammogram 04/2023, 04/2022 Negative. Dense breast tissue lowering sensitivity. Enhancing 8 mm nodule redemonstrated. This was seen on 01/07/2023 CT-A/P, hyperdense 12 mm nodule at that time - BRCA gene testing negative in 2014 Does not show high risk features and reduced in size. Plan Chronic Conditions: Migraine with Aura: Propranolol, Duloxetine, Nortriptyline, Riboflavin, Magnesium -Ajovy monthy. Botox outpatient. Nurtec prn if acute migraine develops Hypothyroidism: Synthroid. Free T4/T3 WNL GERD: on PPI IBS-C: Linzess DVT prophylaxis: Heparin twice daily CODE STATUS: Full code Diet: N.p.o. Disposition: Medical/surgical Admission and Anticipated Discharge Date Admission Date: September 23, 2023 Supervising Physician Co-Signing Physician Notes The patient was seen by me post-operatively. The chart was reviewed. Case discussed with NEETU Marie. Agree with assessment and plan Subjective Patient seen and examined this afternoon following her lap choley. She reports to be feeling well after surgery. She states the pain medication was controlling her abdominal pain. She was started on a clear liquid diet but does not have much of an appetite. Denied any other complaints. Physical Exam 2 Constitutional: WD/WN, vitals as above Eyes: PERRL, conjunctivae normal, anicteric sclerae Respiratory: normal respiratory effort, lungs clear to auscultation Cardiovascular: RRR, no murmur, no edema Skin: no rashes, warm and dry Results & Data Results & Data Vital Signs (Past 12 Hours) Vital Signs Temp Pulse Pulse Pulse Resp BP Pulse Ox 09/24/23 11:45 36.6 C 84 14 158/97 H 98 09/24/23 11:12 84 18 156/100 H 96 09/24/23 10:45 36.5 C 81 16 147/94 H 100 09/24/23 10:30 37.2 C 90 16 151/92 H 98 09/24/23 10:20 85 14 143/92 H 100 09/24/23 10:10 92 H 12 141/91 H 100 09/24/23 10:00 104 H 14 152/101 H 100 09/24/23 09:50 36.3 C L 115 H 19 143/82 H 98 09/24/23 08:25 36.9 C 81 18 121/83 98 09/24/23 07:49 36.7 C 84 18 140/78 96 O2 Del Method O2 Flow Rate 09/24/23 11:45 Room Air 09/24/23 11:12 Room Air 09/24/23 10:45 Room Air 09/24/23 10:30 Room Air 09/24/23 10:20 Oxymask 2 09/24/23 10:10 Oxymask 3 09/24/23 10:00 Oxymask 6 09/24/23 09:50 Oxymask 6 09/24/23 08:25 Room Air 09/24/23 07:49 Room Air Laboratory Results 09/24/23 05:37 09/24/23 05:37 Diagnostic Findings Chest X-Ray 09/24/23 07:36 XR chest 1V portable HISTORY: pre-op COMPARISON: Chest 02/27/2018. FINDINGS: The lungs are clear. Cardiac silhouette is normal in size. No pleural effusions. No pneumothorax. IMPRESSION: No acute process. ACT 112: Negative or not required by law. Electronically signed by: Mukul Hinds M.D. 09/24/2023 8:33 AM PG Care Time/CCT Total # of Minutes Spent Total Time Spent with Patient: Total time spent is greater than 50% in coordination of care (as documented) at patient's floor/unit and/or counseling patient: Coding Level of Care Code 45606 SUB INP/OBS CARE 2/35MIN Diagnoses Acute cholecystitis K81.0 At increased risk for malignant neoplasm of breast Z91.89
[2023-09-24] MEDS: BACLOFEN 20 MG TAB PO SCH (13:18)
[2023-09-24] MEDS: COUGH DROP (SUGAR FREE) LOZ 24 LOZ/1 BOX BUCCAL PRN (13:48)
[2023-09-24] MEDS: NORTRIPTYLINE HCL 10 MG CAP PO SCH (20:28)
[2023-09-24] MEDS ORDERED: PROPRANOLOL HCL 60 MG LA CAP PO SCH (21:00)
[2023-09-24] MEDS: PROPRANOLOL HCL 20 MG TAB PO SCH (21:21)
--- NOTE | 2023-09-24 23:24 | Electrocardiogram Report ---
Test Reason : Blood Pressure : / mmHG Vent. Rate : 066 BPM Atrial Rate : 066 BPM P-R Int : 136 ms QRS Dur : 092 ms QT Int : 394 ms P-R-T Axes : 063 008 035 degrees QTc Int : 413 ms Normal sinus rhythm Cannot rule out Anterior infarct , age undetermined Abnormal ECG When compared with ECG of 27-FEB-2018 10:00, Nonspecific T wave abnormality now evident in Anterior leads Confirmed by Davon Gustafson ([id number]) on 09/24/2023 11:24:50 PM Referred By: REFERRED SELF Confirmed By:Davon Gustafson
[2023-09-25] MEDS: POLYETHYLENE (MIRALAX) 17 GM PACK PO PRN (00:32)
--- NOTE | 2023-09-25 06:26 | Electrocardiogram Report ---
Test Reason : Blood Pressure : / mmHG Vent. Rate : 063 BPM Atrial Rate : 063 BPM P-R Int : 160 ms QRS Dur : 090 ms QT Int : 404 ms P-R-T Axes : 042 046 046 degrees QTc Int : 413 ms Normal sinus rhythm Normal ECG When compared with ECG of 23-SEP-2023 07:03, (unconfirmed) Nonspecific T wave abnormality no longer evident in Anterior leads Confirmed by Davon Gustafson ([id number]) on 09/25/2023 6:26:11 AM Referred By: REFERRED SELF Confirmed By:Davon Gustafson
[2023-09-25 08:44] LABS: Basophils # (auto) 0.02 K/uL (0.00-0.20); Basophils % (auto) 0.2 %; Eosinophils # (auto) 0.09 K/uL (0.00-0.50); Eosinophils % (auto) 0.9 %; Hematocrit (blood only) 34.3 % (37.0-47.0); Hemoglobin 11.8 g/dl (12.0-16.0); Immature Granulocytes # (auto) 0.02 K/uL (0.01-0.20); Immature Granulocytes % (auto) 0.2 %; Lymphocytes # (auto) 2.45 K/uL (1.20-3.40); Lymphocytes % (auto) 25.3 %; Mean Corpuscular Hemoglobin 30.9 pg (25.0-34.0); Mean Corpuscular Hgb Conc 34.4 g/dL (32.0-36.0); Mean Corpuscular Volume 89.8 fL (80.0-100.0); Mean Platelet Volume 10.1 fL (9.4-12.4); Monocytes # (auto) 0.59 K/uL (0.11-0.59); Monocytes % (auto) 6.1 %; Neutrophils % (auto) 67.3 %; Platelet Count 265 K/uL (130-400); RDW Coefficient of Variation 12.4 % (11.5-14.5); RDW Standard Deviation 39.8 fL (36.4-46.3); Red Blood Count 3.82 M/uL (4.20-5.40); White Blood Count 9.67 K/ul (4.8-10.8)
[2023-09-25] MEDS: DULoxetine HCL 30 MG CAP PO SCH (08:46)
[2023-09-25] MEDS: LINACLOTIDE 145 MCG CAPSULE PO SCH (08:46)
[2023-09-25 09:14] LABS: Albumin Level 3.5 gm/dl (3.4-5.0); BUN Creatinine Ratio 10.3 (10-20); Bilirubin Direct 0.1 mg/dl (0-0.2); Bilirubin,Total 0.5 mg/dl (0.2-1.0); Calcium 8.8 mg/dl (8.6-10.3); Creatinine Clr Calc Pharmacy 89.2 ml/min; Est GFR (African American) 107.9 ml/min; Est GFR (Non-African American) 93.1 ml/min; Potassium 3.6 mmol/L (3.5-5.1); Total Protein 5.3 gm/dl (6.0-8.3)
--- NOTE | 2023-09-25 09:43 | Surgery Progress Note ---
Date of Service September 25, 2023 Assessment & Plan (1) Acute cholecystitis: Plan: s/p lap shiva discharge instructions in chart will need po pain meds no antibiotics at home required F/U my clinic 2 weeks Admission and Anticipated Discharge Date Admission Date: September 23, 2023 Subjective some RUQ pain taking po ambulating Review of Systems Constitutional: no fever and no chills Respiratory: no cough and no dyspnea Cardiovascular: no chest pain Gastrointestinal: + abdominal pain; no nausea and no vomit ing Genitourinary: no dysuria Musculoskeletal: no back pain Psychiatric: no behavioral changes Physical Exam Constitutional: WD/WN, vitals as above Gastrointestinal (Abdomen): Inspection/Auscultation: abdomen normal to inspection, normal bowel sounds and + abdominal surgical incision; abdomen not distended Percussion/Palpation: + abdomen tender and abdomen soft; no guarding and abdomen not rigid Musculoskeletal: Head/Neck/Chest: normocephalic and head atraumatic Skin: no rashes, warm and dry Results & Data Vital Signs (Past 12 Hours) Vital Signs Temp Pulse Pulse Resp BP Pulse Ox O2 Del Method 09/25/23 07:19 36.6 C 74 18 136/88 98 Room Air 09/25/23 04:11 36.7 C 71 18 110/69 96 Room Air 09/25/23 00:31 36.6 C 64 18 127/81 97 Room Air 09/24/23 21:46 Room Air
--- NOTE | 2023-09-25 10:53 | Discharge Summary ---
Date of Service September 25, 2023 Admission HPI Per Admitting Provider Mandy is a 43-year-old female with past medical history of asthma, trigeminal neuralgia, fibromyalgia, GERD, IBS, hypothyroidism, chronic fatigue syndrome, cervical radiculopathy, and migraine with aura who presents to the emergency department with epigastric abdominal discomfort and nausea. She did not have a leukocytosis, hemoglobin was normal, creatinine was 0.64, she did not have an elevated bilirubin or transaminitis, troponin was normal, and lipase was not elevated. UA is not infected appearing. CTA/P revealing for mild pericholecystic fluid without gallbladder wall thickening, acute cholecystitis not excluded. Right 8 mm enhancing breast nodule redemonstrated. No bowel wall thickening or obstruction. Follow-up gallbladder ultrasound with pericholecystic fluid and thickened gallbladder wall with small stones/sludge consistent with acute cholecystitis for which surgery was consulted. Patient was recommended for medical admission with surgical consultation. Seen at the bedside Four episodes of severe abdominal pin after meals in the last month. Provoked once by pizza, once by sausage. Fatty meals seem to be worse and cause pain. Pain is in the epigastric and last night radiated to the right side. +Nausea, nonbloody/nonbilious emesis. This past week had some radiation to the right back. Came in today because symptoms are most persistent. +sweats and chills, had a temperature of ~99.4 with her second episode earlier in the month. IBS-C at baseline. 'Mostly under control with linzess' in the past month, also takes metamucil +/- miralax. BMs have been thin, brown this month. No rakesh colored stool, white stool. no black or bloody BMs. No chest pain or chest pressure. No shortness of breath. Migraines doing well with botox/ajovy and nurtec PRN. No recent migraines. No migraine on admission. Did try nurtec last night for the intense nausea/stomach pain but did not help. Gets visual landon when she does have a migraine No history of kidney disease, bloot clots, ischemic disease Medical History: Reviewed Medications: Reviewed Surgical History: Reviewed Family history: Reviewed Allergies: Reviewed. NKDA Social History: No tobacco use. Rare social alcohol use. Was on vacation this week and had wine and a few martinis, thinks this may have contributed to her episode sunday. Code Status: Full Code Principal Diagnosis acute cholecystitis Discharge Exam Constitutional WD/WN, vitals as above Eyes PERRL, conjunctivae normal, anicteric sclerae Respiratory normal respiratory effort, lungs clear to auscultation Cardiovascular RRR, no murmur, no edema Skin no rashes, warm and dry Psychiatric A+Ox3, euthymic affect Discharge Data Allergies Allergy/AdvReac Type Severity Reaction Status Date / Time carbamazepine [From Tegretol] AdvReac liver Verified 08/20/23 09:07 problems [id number] Antimigraine AdvReac SIDE Verified 08/20/23 09:07 Agents EFFECTS Consultations 09/23/23 11:20 Consult General Surgery Routine ED Decision to Admit Stat 09/24/23 07:33 Consult General Surgery Routine Procedures Performed Operation Date: 09/24/23 07:00 Actual Procedures p Laparoscopic Cholecystectomy(Not Applicable) - Tavo Horne MD Ordered Studies Abdomen/Pelvis CT 09/23/23 06:21 IMPRESSION: 1. Mild pericholecystic edema/fluid. However, no gallbladder wall thickening. No gallstones identified. This could be due to overhydration or underlying hepatic pathology. Acute cholecystitis is not excluded by imaging. Clinical correlation recommended. 2. No bowel wall thickening or obstruction. 3. Moderate to large amount of well-formed stool seen throughout the colon. 4. A partially visualized 8 mm enhancing nodule in the right breast is again noted. 5. Additional findings as described above. Electronically signed by: Mukul Hinds M.D. 09/23/2023 8:07 AM Gallbladder Ultrasound 09/23/23 08:44 IMPRESSION: Pericholecystic fluid with a thickened gallbladder wall and small stones/sludge within the gallbladder. This is concerning for an acute cholecystitis. Surgical consultation recommended. Electronically signed by: Mukul Hinds M.D. 09/23/2023 10:38 AM Chest X-Ray 09/24/23 07:36 IMPRESSION: No acute process. Electronically signed by: Mukul Hinds M.D. 09/24/2023 8:33 AM 09/25/23 07:36 09/25/23 07:36 Vital Signs Temp 36.6 C 09/25/23 07:19 Pulse 74 09/25/23 07:19 Resp 18 09/25/23 07:19 BP 136/88 09/25/23 07:19 Pulse Ox 98 09/25/23 07:19 O2 Del Method Room Air 09/25/23 07:19 O2 Flow Rate 2 09/24/23 10:20 Hospital Course (1) Acute cholecystitis: Patient presented to ED on 09/22 with complaints of epigastric abdominal pain and nausea. She had a CTAP that was consistent with mild pericholecystic fluid w/o gallbladder wall thickening, acute cholecystitis not excluded. right 8mm enhancing breast nodule re-demonstrated. no bowel wall thickening/obstruction. RUQ US revealed pericholecystic fluid and thickened gallbladder with small stones/sludge consistent with acute cholecystitis. Surgery was consulted and lap choley was performed on 09/23. Patient was advanced to a low fat diet prior to discharge. On day of discharge CBC and BMP WNL. LFTs WNL. She was given oxycodone to go home with for pain. Encouraged adequate hydration at home as well. She is to follow up with her surgeon in 2 weeks in the clinic. (2) At increased risk for malignant neoplasm of breast: Patients CTAP revealed 8mm nodule re-demonstrated. Was previously seen in 01/2023 CTAP that was 12 mm. Mammogram of 04/28 and 04/27 were negative. BRCA gene testing negative in 2014. Nodule does not show high features and has reduced in size. Plan Chronic Conditions: Migraine with Aura: Propranolol, Duloxetine, Nortriptyline, Riboflavin, Magnesium -Ajovy monthy. Botox outpatient. Nurtec prn if acute migraine develops Hypothyroidism: Synthroid. Free T4/T3 WNL GERD: on PPI IBS-C: Linzess Total Time Total Time Spent Total Time Spent (In Minutes): 45 Total Time Includes: Examination of the Patient, Discharge Planning, Medication Reconciliation and Communication With Other Providers Discharge Plan Discharge Items Patient Disposition: Home - Self-Care Reason For Visit: ACUTE KIRT Discharge Diagnosis: acute cholecystitis Activity: Per Instructions section Activity Comment: no strenuous activity; no heavy housework or yardwork Lifting: No more than 25 pounds Lifting Comment: 3-4 weeks post-op Bathing: No limitations Bathing Comment: shower as desired Sexual Activity: When tolerated Exercise/Sports: Wait until after follow-up appointment Driving/Machine Use: Resume 1 day after discharge Weightbearing: Full weightbearing Non-emergency contact: Surgeon Call non-emergency contact if: your pain is concerning for you, your temperature is above 101.5 and your wound pain has increased Follow-up/Referrals: Gallo Richard DO [Primary Care Provider] - 10/08/23 10:25 am Diet: Regular Addtl Attending Provider Instructions: Mrs. Saez, You were recently hospitalized for abdominal pain. Upon further testing, you were found to have acute cholecystitis. Dr. Horne removed your gallbladder on 09/24/2023. Please see recommendations regarding your discharge. 1. Please follow up with Dr. Horne in 2 weeks 2. Please do not lift more than 25 pounds. 3. Please avoid driving while on pain medication 4. Please use Oxycodone-Acetaminophen 1 tablet by mouth every 6 hours as needed for pain. 5. You may use NSAIDs for pain 6. Please avoid submerging in water until seen in the clinic by the surgeon 7. You may resume your outpatient medications as previously prescribed. Please follow up with your PCP within 1-2 weeks of discharge. If you develop any severe abdominal pain, fevers, chills, nausea, or vomiting please report to the ER for further evaluation. Sincerely, Lindy Duque PA-C Pending Studies at Discharge: No Stand-Alone Forms: My [employer], Smoking Cessation Medications and DC Order Prescriptions: New oxycodone 5 mg tablet 5 mg PO Q4H PRN (Reason: pain) Qty: 14 0RF Continued Excedrin Extra Strength 250-250-65 mg tablet 1 tab PO Q6H PRN (Reason: Migraine Headache) methocarbamol 500 mg tablet 500 mg PO BID PRN (Reason: neck pain) 30 Days Qty: 30 3RF Nurtec ODT 75 mg tablet,disintegrating 75 mg PO ONCE PRN (Reason: migraine headache) Qty: 8 5RF propranolol 20 mg tablet 20 mg PO BID 90 Days Qty: 180 4RF omeprazole 40 mg capsule,delayed release(DR/EC) 40 mg PO QAM levothyroxine 100 mcg tablet 100 mcg PO QAM fluticasone propionate 50 mcg/actuation spray,suspension 1 spray intranasal HS PRN (Reason: Other) onabotulinumtoxinA [Botox] 1 dose intradermal .[id number] Rx Instructions: per pt she thinks it's 150 units cetirizine [Zyrtec] 10 mg Tablet 10 mg PO HS acetaminophen [Tylenol Extra Strength] 500 mg Tablet 1,000 mg PO Q6H PRN (Reason: Pain) olopatadine [Patanol] 0.1 % drops 1 drp OPB UD PRN (Reason: Other) albuterol sulfate 90 mcg/actuation HFA aerosol inhaler 2 puff INHALATION QID PRN (Reason: Other) Linzess 290 mcg capsule 290 mcg PO QAM baclofen 20 mg tablet 20 mg PO TID Rx Instructions: TAKE 1 TABLET BY MOUTH THREE TIMES A DAY nortriptyline 10 mg capsule 30 mg PO HS Rx Instructions: TAKE 3 CAPSULES PO DAILY duloxetine 30 mg capsule,delayed release(DR/EC) 30 mg PO QAM Rx Instructions: TAKE ONE CAPSULE BY MOUTH DAILY for a total of 90mg duloxetine 60 mg capsule,delayed release(DR/EC) 60 mg PO QAM Rx Instructions: TAKE ONE CAPSULE BY MOUTH DAILY with 30mg capsule for total of 90mg daily riboflavin (vitamin B2) 400 mg tablet 400 mg PO HS Ajovy Autoinjector 225 mg/1.5 mL auto-injector 225 mg subcut MONTHLY magnesium glycinate 100 mg magnesium capsule 400 mg PO HS Discharge Orders: Discharge Order (Routine); Ordered 09/25/23 Ordered By: Lindy Thomas/Other Patient Handouts: Cholecystectomy Admission Data Admit Date/Time: 09/23/23 11:52 Attending Provider: Uriel Lacey Admit Provider: Joaquin Marin Primary Care Provider: Gallo Richard Other Providers: Tavo Horne; Joaquin Marin Other Interventions: Discharge Summary Assessment (RN) Last Done: 09/25/23 11:23 Supervising Physician Co-Signing Physician Notes The patient was not seen by me. The chart was reviewed. Case discussed with NEETU Marie. Agree with assessment and plan Coding Level of Care Code 69106 INP/OBS DISCH >30 MIN Diagnoses Acute cholecystitis K81.0 At increased risk for malignant neoplasm of breast Z91.89
== END 2023-09-25 11:58 | disposition home or self-care (01) ==
LOC: ED 04:41 → SUATTDRO 11:52 → 3W 11:52 → INTOOBSV 11:52 → 3W 12:49
DX: Z79.899 Other long term (current) drug therapy; Z79.890 Hormone replacement therapy; Z88.8 Allergy status to other drugs, medicaments and biological substances; G43.109 Migraine with aura, not intractable, without status migrainosus; E03.9 Hypothyroidism, unspecified; Z91.89 Other specified personal risk factors, not elsewhere classified; K58.9 Irritable bowel syndrome, unspecified; M54.12 Radiculopathy, cervical region; K80.10 Calculus of gallbladder with chronic cholecystitis without obstruction